=== PATIENT | male | born 1940 | race Caucasian/White ===

== ENCOUNTER 2016-12-15 04:30 | Inpatient (IN) | payer MEDICARE, OTHER ==
[2016-12-15] VITALS (11 sets, daily range): BP systolic 168–211; BP diastolic 72–125; PULSE 48–81; RESP 14–20; TEMP 97.2; O2SAT 96–99
[~2016-12-15] VITALS: Ht 177.8 cm; Wt 91.8 kg
[~2016-12-15 04:30] MED LIST: AMLO5TAB96 PO; CLOP75 PO; COZA50TA PO; CYCL20CR PO; LEVO.075 PO; Losartan Potassium PO; OMEP20TA39 PO; WAL-10TA2 PO
[2016-12-15] MEDS ORDERED: SODIUM CHLOR 0.9% 1000 ML INJ 1,000 ML IV SCH (04:33)
[2016-12-15] MEDS ORDERED: SODIUM CHLORIDE 0.9% FLUSH 10 ML FLUSH IV FLUSH PRN ×2 (04:45→10:30)
[2016-12-15] MEDS ORDERED: ALUMINUM/MAGNESIUM/SIMETH 30 ML CUP PO ONE (04:45)
[2016-12-15] MEDS ORDERED: ONDANSETRON HCL 4 MG/2 ML VIAL IVP ONE (04:45)
[2016-12-15] MEDS ORDERED: HYDROmorphone HCL PF 1 MG/ML VIAL IV PUSH ONE (04:45)
[2016-12-15] MEDS ORDERED: LIDOCAINE VISCOUS 2% SOLN 15 ML UDC PO ONE (04:45)
[2016-12-15 05:00] LABS: AUTOMATED NEUTROPHIL # 8.6 TH/MM3 (1.8-7.7); BASOPHIL % 0.2 % (0.0-2.0); EOSINOPHIL # 0.2 TH/MM3 (0-0.4); EOSINOPHIL % 1.3 % (0.0-4.0); HEMATOCRIT 43.8 % (39.0-51.0); HEMO FLAGS DIFF FINAL; LYMPH % 17.6 % (9.0-44.0); MEAN CELL VOLUME 85.8 FL (80.0-100.0); MEAN CORPUSCULAR HEMOGLOBIN 28.7 PG (27.0-34.0); MEAN CORPUSCULAR HGB CONC 33.5 % (32.0-36.0); MONO % 7.3 % (0.0-8.0); NEUT % 73.6 % (16.0-70.0); PLATELET COUNT 166 TH/MM3 (150-450); RED CELL DISTRIBUTION WIDTH 13.3 % (11.6-17.2); WHITE BLOOD COUNT 11.6 TH/MM3 (4.0-11.0)
[2016-12-15 05:12] LABS: APTT (PATIENT) 25.5 SEC (24.3-30.1); PROTHROMBIN TIME - PATIENT 11.6 SEC (9.8-11.6)
[2016-12-15 05:16] LABS: ALT (GPT) 18 U/L (12-78); ANION GAP 8 MEQ/L (5-15); AST (GOT) 13 U/L (15-37); BLOOD UREA NITROGEN 19 MG/DL (7-18); CHLORIDE 107 MEQ/L (98-107); GLOMERULAR FILTRATION RATE 60 ML/MIN (>89); POTASSIUM 3.9 MEQ/L (3.5-5.1); SODIUM (NA) 142 MEQ/L (136-145)
[2016-12-15] MEDS ORDERED: MONT10TA4 PO (05:18)
[2016-12-15] MEDS ORDERED: FENO1TAB46 PO (05:18)
[2016-12-15] MEDS ORDERED: CLOP75TA PO (05:18)
[2016-12-15] MEDS ORDERED: VITA100T15 PO (05:18)
[2016-12-15] MEDS ORDERED: LACTCAP8 PO (05:18)
[2016-12-15] MEDS ORDERED: LORA10TA PO (05:18)
[2016-12-15] MEDS ORDERED: LOSA50TA PO (05:18)
[2016-12-15] MEDS ORDERED: AMLO5TAB2 PO (05:18)
[2016-12-15] MEDS ORDERED: FOLI5CAP PO (05:18)
[2016-12-15] MEDS ORDERED: METH2.5T PO (05:18)
[2016-12-15] MEDS ORDERED: OMEP20TA PO (05:18)
[2016-12-15] MEDS ORDERED: SYNT175T PO (05:18)
[2016-12-15] MEDS ORDERED: PYRI100T PO (05:18)
[2016-12-15] MEDS ORDERED: CHOL100025 CHEW (05:18)
[2016-12-15 05:19] LABS: ALKALINE PHOSPHATASE 98 U/L (45-117); TOTAL BILIRUBIN ADULT 0.4 MG/DL (0.2-1.0)
[2016-12-15] MEDS ORDERED: PLAV75TA29 PO (05:19)
--- NOTE | 2016-12-15 05:26 | PD ---
HPI Chief Complaint: Cardiac Complaint Time Seen by Provider: 04:33 Travel History International Travel<30 days: No Contact w/Intl Traveler<30days: No Traveled to known affect area: No History of Present Illness HPI 76 M sudden onset abdominal pain while asleep. Constant. 10/10. Severe. Worse with palpation. No radiation. EMS reports pt cool pale and diaphoretic on scene. HR in 30's. Pt received atropine by EMS and HR in creased to 50s. He received 300NS. Similar episodes occurred previously and were diagnosed as pancreatitis. Pt has hx including CVA with mild residual speech deficit. PFSH Past Medical History Arthritis: Yes Autoimmune Disease: No Anxiety: No Depression: No Heart Rhythm Problems: Yes (A FIB) Cancer: No Cardiovascular Problems: Yes High Cholesterol: Yes Chemotherapy: No Chest Pain: No Cerebrovascular Accident: Yes (2001) Diabetes: Yes ([facility]) Patient Takes Glucophage: No Diminished Hearing: Yes ([facility]) Endocrine: No Gastrointestinal Disorders: Yes (PANCREATITIS, GALL BLADDER PROBLEMS) GERD: Yes Genitourinary: No Hypertension: Yes Immune Disorder: No Musculoskeletal: Yes Neurologic: No Psychiatric: No Reproductive: No Respiratory: No Immunizations Current: Yes Radiation Therapy: No Thyroid Disease: Yes ?: Not Past Surgical History Cholecystectomy: Yes (2013) Eye Surgery: Yes Pacemaker: No Other Surgery: Yes Social History Alcohol Use: No Tobacco Use: No Substance Use: No Allergies-Medications (Allergen,Severity, Reaction): Coded Allergies: No Known Allergies (Verified , U, 12/23/14) Reported Meds & Prescriptions Reported Meds & Active Scripts Active [Losartan Potassium] 50 MG Tab 50 Mg PO DAILY Synthroid (Levothyroxine Sodium) 75 Mcg Tab 75 Mcg PO DAILY@0600 Cozaar (Losartan Potassium) 50 Mg Tab 50 Mg PO BID decrease to once daily Reported Plavix (Clopidogrel Bisulfate) 75 Mg Tab 75 Mg PO DAILY Probiotic (Lactobacillus Acidophilus) 1 Cap Cap 3 Cap PO DAILY Vitamin B-6 (Pyridoxine HCl) 100 Mg Tab 100 Mg PO DAILY Vitamin B12 (Cyanocobalamin) 100 Mcg Tab 2,500 Mcg PO DAILY Vitamin D3 (Cholecalciferol) 1,000 Unit Chew 1,000 Units CHEW DAILY Folic Acid 5 Mg Cap 1 Mg PO DAILY Methotrexate 2.5 Mg Tab 2.5 Mg PO Q7D Omeprazole 20 Mg Tab 20 Mg PO DAILY Fenofibrate 40 Mg Tab 34 Mg PO DAILY Clopidogrel (Clopidogrel Bisulfate) 75 Mg Tab 75 Mg PO DAILY Synthroid (Levothyroxine Sodium) 175 Mcg Tab 175 Mcg PO DAILY Montelukast (Montelukast Sodium) 10 Mg Tab 10 Mg PO DAILY Loratadine 10 Mg Tab 10 Mg PO DAILY Losartan (Losartan Potassium) 50 Mg Tab 50 Mg PO BID Amlodipine (Amlodipine Besylate) 5 Mg Tab 5 Mg PO BID Cyclobenzaprine 20 (Cyclobenzaprine HCl) 20 Mg Cre 20 Mg PO DAILY Hm Omeprazole (Omeprazole) 20 Mg Tab 20 Mg PO DAILY Plavix (Clopidogrel Bisulfate) 75 Mg Tab 75 Mg PO EVERY OTHER DAY Norvasc (Amlodipine Besylate) 5 Mg Tab 5 Mg PO DAILY Loratadine 10 Mg Tab 10 Mg PO DAILY Review of Systems Except as stated in HPI: all other systems reviewed are Neg General / Constitutional: No: Fever Cardiovascular: Positive: Diaphoresis Physical Exam Narrative GENERAL: 76 M, WNWD, mild to moderate distress SKIN: Cool. Dry. HEAD: Atraumatic. Normocephalic. EYES: Pupils equal and round. No scleral icterus. No injection or drainage. ENT: No nasal bleeding or discharge. Mucous membranes pink and moist. NECK: Trachea midline. No JVD. CARDIOVASCULAR: Regular rate and rhythm. RESPIRATORY: No accessory muscle use. Clear to auscultation. Breath sounds equal bilaterally. GASTROINTESTINAL: TTP epigastrium. Guarding. No palpable/pulsatile mass. MUSCULOSKELETAL: Extremities without clubbing, cyanosis, or edema. No obvious deformities. NEUROLOGICAL: Awake and alert. No obvious cranial nerve deficits. Motor grossly within normal limits. Five out of 5 muscle strength in the arms and legs. Normal speech. PSYCHIATRIC: Appropriate mood and affect; insight and judgment normal. Data Data Last Documented VS Vital Signs Date Time Temp Pulse Resp B/P Pulse Ox O2 Delivery O2 Flow Rate FiO2 12/15/16 07:55 50 14 98 Nasal Cannula 2 12/15/16 04:34 97.2 Orders Complete Blood Count With Diff (12/15/16 04:33) Comprehensive Metabolic Panel (12/15/16 04:33) Lipase (12/15/16 04:33) Lactic Acid (12/15/16 04:33) Prothrombin Time / Inr (Pt) (12/15/16 04:33) Act Partial Throm Time (Ptt) (12/15/16 04:33) Urinalysis - C+S If Indicated (12/15/16 04:33) Ct Abd/Pel W Iv Contrast(Rout) (12/15/16 04:33) Iv Access Insert/Monitor (12/15/16 04:33) Ecg Monitoring (12/15/16 04:33) Oximetry (12/15/16 04:33) Ondansetron Inj (Zofran Inj) (12/15/16 04:45) Sodium Chlor 0.9% 1000 Ml Inj (Ns 1000 M (12/15/16 04:33) Sodium Chloride 0.9% Flush (Ns Flush) (12/15/16 04:45) Electrocardiogram (12/15/16 04:33) Al-Mag Hy-Si 40-40-4 Mg/Ml Liq (Mag-Al P (12/15/16 04:45) Lidocaine 2% Viscous (Xylocaine 2% Visco (12/15/16 04:45) Hydromorphone Pf Inj (Dilaudid Pf Inj) (12/15/16 04:45) Iohexol 350 Inj (Omnipaque 350 Inj) (12/15/16 07:28) Labs Laboratory Tests Test 12/15/16 04:45 White Blood Count 11.6 TH/MM3 Red Blood Count 5.10 MIL/MM3 Hemoglobin 14.7 GM/DL Hematocrit 43.8 % Mean Corpuscular Volume 85.8 FL Mean Corpuscular Hemoglobin 28.7 PG Mean Corpuscular Hemoglobin 33.5 % Concent Red Cell Distribution Width 13.3 % Platelet Count 166 TH/MM3 Mean Platelet Volume 8.2 FL Neutrophils (%) (Auto) 73.6 % Lymphocytes (%) (Auto) 17.6 % Monocytes (%) (Auto) 7.3 % Eosinophils (%) (Auto) 1.3 % Basophils (%) (Auto) 0.2 % Neutrophils # (Auto) 8.6 TH/MM3 Lymphocytes # (Auto) 2.0 TH/MM3 Monocytes # (Auto) 0.8 TH/MM3 Eosinophils # (Auto) 0.2 TH/MM3 Basophils # (Auto) 0.0 TH/MM3 CBC Comment DIFF FINAL Differential Comment Prothrombin Time 11.6 SEC Prothromb Time International 1.0 RATIO Ratio Activated Partial 25.5 SEC Thromboplast Time Sodium Level 142 MEQ/L Potassium Level 3.9 MEQ/L Chloride Level 107 MEQ/L Carbon Dioxide Level 27.0 MEQ/L Anion Gap 8 MEQ/L Blood Urea Nitrogen 19 MG/DL Creatinine 1.18 MG/DL Estimat Glomerular Filtration 60 ML/MIN Rate Random Glucose 122 MG/DL Lactic Acid Level 1.2 mmol/L Calcium Level 9.0 MG/DL Total Bilirubin 0.4 MG/DL Aspartate Amino Transf 13 U/L (AST/SGOT) Alanine Aminotransferase 18 U/L (ALT/SGPT) Alkaline Phosphatase 98 U/L Total Protein 6.9 GM/DL Albumin 3.5 GM/DL Lipase 11226 U/L MDM Medical Decision Making Medical Screen Exam Complete: Yes Emergency Medical Condition: Yes Medical Record Reviewed: Yes Differential Diagnosis Constipation, Gastritis, Acute Cholecystitis, Biliary Colic, Pancreatitis, MARTINEZ , Hepatitis, Bowel Obstruction, Cystitis, Mesenteric Ischemia, AAA, Appendicitis , Renal Stone/Hydronephrosis, GERD, perforated viscous Narrative Course CBC & BMP Diagram 12/15/16 04:45 LIpase 65555 LFTs normal Lactic acid 1.2 INR 1.0 Imaging pending at time of dictation. Dr Oliver to follow and admit patient. Nato Palma MD Dec 15, 2016 05:26
[2016-12-15] MEDS ORDERED: IOHEXOL 350 MG/ML 10 ML VIAL (for RAD DIAG) IV ONE (07:28)
--- NOTE | 2016-12-15 07:39 | RADRPT ---
EXAM DATE/TIME: 12/15/2016 07:17 [place] COMPARISON: CT ABDOMEN & PELVIS W CONTRAST, December 24, 2014, 1:58. INDICATIONS : Sudden onset epigastric pain. IV CONTRAST: 96 cc Omnipaque 350 (iohexol) IV ORAL CONTRAST: No oral contrast ingested. RADIATION DOSE: 16.41 CTDIvol (mGy) MEDICAL HISTORY : Pancreatitis. Cardiovascular disease Hypertension. SURGICAL HISTORY : Cholecystectomy. ENCOUNTER: Initial ACUITY: 1 day PAIN SCALE: 5/10 LOCATION: Bilateral upper quadrant TECHNIQUE: Volumetric scanning of the abdomen and pelvis was performed. Using automated exposure control and ad justment of the mA and/or kV according to patient size, radiation dose was kept as low as reasonably achievable to obtain optimal diagnostic quality images. FINDINGS: LOWER LUNGS: Prominent fibrotic changes in the lung bases similar to prior LIVER: Diffuse mild decrease in hepatic attenuation, potentially fatty infiltration without evidence of foca l mass or biliary ductal dilatation. Gallbladder is surgically absent. SPLEEN: Normal size without lesion. PANCREAS: Moderate surrounding peripancreatic inflammatory changes. No evidence of mass or loculated collection . KIDNEYS: Small bilateral renal cysts. No stone or hydronephrosis. ADRENAL GLANDS: Within normal limits. VASCULAR: Atherosclerotic changes in the abdominal aorta and visualized branch vessels. No evidence of aneurysm . No major vessel occlusion. BOWEL/MESENTERY: The stomach, small bowel, and colon demonstrate no acute abnormality. There is no free intraperitone al air or fluid. ABDOMINAL WALL: Within normal limits. RETROPERITONEUM: There is no lymphadenopathy. BLADDER: No wall thickening or mass. REPRODUCTIVE: Within normal limits. INGUINAL: There is no lymphadenopathy or hernia. MUSCULOSKELETAL: Within normal limits for patient age. CONCLUSION: Pancreatitis. No evidence of abscess, pseudocyst or other complication at present Derick Purcell MD on December 15, 2016 at 7:33 Board Certified Radiologist. This report was verified electronically.
[2016-12-15] MEDS ORDERED: HYDROmorphone HCL PF 1 MG/ML VIAL IVS ONE (08:00)
--- NOTE | 2016-12-15 08:19 | PD ---
Data Data Last Documented VS Vital Signs Date Time Temp Pulse Resp B/P Pulse Ox O2 Delivery O2 Flow Rate FiO2 12/15/16 07:55 50 14 197/84 98 Nasal Cannula 2 12/15/16 04:34 97.2 Orders Complete Blood Count With Diff (12/15/16 04:33) Comprehensive Metabolic Panel (12/15/16 04:33) Lipase (12/15/16 04:33) Lactic Acid (12/15/16 04:33) Prothrombin Time / Inr (Pt) (12/15/16 04:33) Act Partial Throm Time (Ptt) (12/15/16 04:33) Urinalysis - C+S If Indicated (12/15/16 04:33) Ct Abd/Pel W Iv Contrast(Rout) (12/15/16 04:33) Iv Access Insert/Monitor (12/15/16 04:33) Ecg Monitoring (12/15/16 04:33) Oximetry (12/15/16 04:33) Ondansetron Inj (Zofran Inj) (12/15/16 04:45) Sodium Chlor 0.9% 1000 Ml Inj (Ns 1000 M (12/15/16 04:33) Sodium Chloride 0.9% Flush (Ns Flush) (12/15/16 04:45) Electrocardiogram (12/15/16 04:33) Al-Mag Hy-Si 40-40-4 Mg/Ml Liq (Mag-Al P (12/15/16 04:45) Lidocaine 2% Viscous (Xylocaine 2% Visco (12/15/16 04:45) Hydromorphone Pf Inj (Dilaudid Pf Inj) (12/15/16 04:45) Iohexol 350 Inj (Omnipaque 350 Inj) (12/15/16 07:28) Hydromorphone Pf Inj (Dilaudid Pf Inj) (12/15/16 08:00) Admit Order (Ed Use Only) (12/15/16 ) Labs Laboratory Tests Test 12/15/16 12/15/16 04:45 08:05 White Blood Count 11.6 TH/MM3 Red Blood Count 5.10 MIL/MM3 Hemoglobin 14.7 GM/DL Hematocrit 43.8 % Mean Corpuscular Volume 85.8 FL Mean Corpuscular Hemoglobin 28.7 PG Mean Corpuscular Hemoglobin 33.5 % Concent Red Cell Distribution Width 13.3 % Platelet Count 166 TH/MM3 Mean Platelet Volume 8.2 FL Neutrophils (%) (Auto) 73.6 % Lymphocytes (%) (Auto) 17.6 % Monocytes (%) (Auto) 7.3 % Eosinophils (%) (Auto) 1.3 % Basophils (%) (Auto) 0.2 % Neutrophils # (Auto) 8.6 TH/MM3 Lymphocytes # (Auto) 2.0 TH/MM3 Monocytes # (Auto) 0.8 TH/MM3 Eosinophils # (Auto) 0.2 TH/MM3 Basophils # (Auto) 0.0 TH/MM3 CBC Comment DIFF FINAL Differential Comment Prothrombin Time 11.6 SEC Prothromb Time International 1.0 RATIO Ratio Activated Partial 25.5 SEC Thromboplast Time Sodium Level 142 MEQ/L Potassium Level 3.9 MEQ/L Chloride Level 107 MEQ/L Carbon Dioxide Level 27.0 MEQ/L Anion Gap 8 MEQ/L Blood Urea Nitrogen 19 MG/DL Creatinine 1.18 MG/DL Estimat Glomerular Filtration 60 ML/MIN Rate Random Glucose 122 MG/DL Lactic Acid Level 1.2 mmol/L Calcium Level 9.0 MG/DL Total Bilirubin 0.4 MG/DL Aspartate Amino Transf 13 U/L (AST/SGOT) Alanine Aminotransferase 18 U/L (ALT/SGPT) Alkaline Phosphatase 98 U/L Total Protein 6.9 GM/DL Albumin 3.5 GM/DL Lipase 26948 U/L Urine Color LIGHT-YELLOW Urine Turbidity CLEAR Urine pH 6.0 Urine Specific [place] 1.026 Urine Protein NEG mg/dL Urine Glucose (UA) NEG mg/dL Urine Ketones NEG mg/dL Urine Occult Blood NEG Urine Nitrite NEG Urine Bilirubin NEG Urine Urobilinogen LESS THAN 2.0 MG/DL Urine Leukocyte Esterase NEG Urine RBC LESS THAN 1 /hpf Urine WBC LESS THAN 1 /hpf Urine Mucus FEW /lpf Microscopic Urinalysis Comment CULT NOT INDICATED MDM Supervised Visit with KIERAN: No Narrative Course 76-year-old man with history of choledocholithiasis and gallstone pancreatitis, status post cholecystectomy, presents to the emergency Department the abrupt onset of abdominal pain, vomiting, found to be pale cold diaphoretic with a heart rate in the 30s likely from vasovagal episode, and then found to have a lipase of 40,000. Was initially evaluated by Dr. Palma and signed out to me to follow-up on the results of CT imaging and for admission. Medical history significant for gallstone pancreatitis, choledocholithiasis, hyperlipidemia, CVA, hypertension, hypothyroidism. Review of records shows the patient had choledocholithiasis following his cholecystectomy requiring ERCP. He states he follows with the [facility]. Patient will be admitted for acute pancreatitis. Spoke with Dr. Muhammad with [facility]. We'll order MRCP, place consult for GI. Diagnosis Primary Impression: Acute pancreatitis Agustin Oliver MD Dec 15, 2016 08:19
[2016-12-15 08:35] LABS: BLOOD, URINE NEG (NEG); COMMENT (UR) CULT NOT INDICATED; CULTURE IF INDICATED CULT NOT INDICATED; GLUCOSE,URINE NEG (NEG); KETONE, URINE NEG (NEG); MUCUS URINE FEW /lpf (OCC); NITRITE,URINE NEG (NEG); URINE COLOR LIGHT-YELLOW (YELLW/STRAW)
--- NOTE | 2016-12-15 09:24 | HHI.HP ---
[facility] Service Family Medicine Primary Care Physician Non-Staff Admission Diagnosis acute pancreatitis Diagnoses: International Travel<30 Days: No Contact w/Intl Traveler<30days: No Known Affected Area: No History of Present Illness Patient is a 76-year-old male with PMH significant for CVA, HTN, recurrent pancreatitis. Presented here today due to epigastric abdominal pain that started 0200 today. Abdominal pain was described as gas that woke him up in the middle of the night. Went to the restroom where he had a bowel movement and passed gas which did alleviate some of his pain. No melena or hematochezia. Denied any nausea or vomiting. Went back to sleep but continued to have abdominal pain as well as being diaphoretic and cool. Endorses decreased appetite over several days prior to abdominal pain today. No fatty meals recently. Since being in hospital, he does endorse improvement in his pain. Continues to lack an appetite and has had no food today. Denies fevers, sore throat, chest pain, SOB, dysuria, rashes. Reports prior hospitalizations for pancreatitis were not complicated. Did not require intubation or intensive care. Has been seeing GI doctors but there is no clear etiology for recurrent pancreatitis. Denies alcohol use. Of note patient was placed back on fenofibrate 6 months ago and has been taking methotrexate since July. Last reported episode of pancreatitis was about 2 years ago. (Shobha Rodríguez MD R2) Review of Systems Constitutional: COMPLAINS OF: Diaphoretic episodes, Change in appetite, DENIES : Fever Eyes: DENIES: Eye pain Ears, nose, mouth, throat: DENIES: Throat pain Respiratory: COMPLAINS OF: Cough, DENIES: Shortness of breath Cardiovascular: DENIES: Chest pain, Lower Extremity Edema Gastrointestinal: COMPLAINS OF: Abdominal pain, DENIES: Constipation, Diarrhea , Nausea, Vomiting Genitourinary: DENIES: Hematuria, Dysuria Integumentary: DENIES: Rash Neurologic: COMPLAINS OF: Localized weakness (residual left facial weakness and dysarthria from prior stroke), DENIES: Abnormal gait, Headache Psychiatric: DENIES: Confusion (Shobha Rodríguez MD R2) Past Family Social History Past Medical History Hyperlipidemia Stroke [id number] speech and dysarthria on left side of mouth Hypertension Hypothyroidism Pancreatitis x2-3episodes possible afib? Past Surgical History Cholecystectomy Cataract surgery Reported Medications Reported Meds & Active Scripts Active [Losartan Potassium] 50 MG Tab 50 Mg PO DAILY Synthroid (Levothyroxine Sodium) 75 Mcg Tab 75 Mcg PO DAILY@0600 Cozaar (Losartan Potassium) 50 Mg Tab 50 Mg PO BID decrease to once daily Reported Plavix (Clopidogrel Bisulfate) 75 Mg Tab 75 Mg PO DAILY Probiotic (Lactobacillus Acidophilus) 1 Cap Cap 3 Cap PO DAILY Vitamin B-6 (Pyridoxine HCl) 100 Mg Tab 100 Mg PO DAILY Vitamin B12 (Cyanocobalamin) 100 Mcg Tab 2,500 Mcg PO DAILY Vitamin D3 (Cholecalciferol) 1,000 Unit Chew 1,000 Units CHEW DAILY Folic Acid 5 Mg Cap 1 Mg PO DAILY Methotrexate 2.5 Mg Tab 2.5 Mg PO Q7D Omeprazole 20 Mg Tab 20 Mg PO DAILY Fenofibrate 40 Mg Tab 34 Mg PO DAILY Clopidogrel (Clopidogrel Bisulfate) 75 Mg Tab 75 Mg PO DAILY Synthroid (Levothyroxine Sodium) 175 Mcg Tab 175 Mcg PO DAILY Montelukast (Montelukast Sodium) 10 Mg Tab 10 Mg PO DAILY Loratadine 10 Mg Tab 10 Mg PO DAILY Losartan (Losartan Potassium) 50 Mg Tab 50 Mg PO BID Amlodipine (Amlodipine Besylate) 5 Mg Tab 5 Mg PO BID Cyclobenzaprine 20 (Cyclobenzaprine HCl) 20 Mg Cre 20 Mg PO DAILY Hm Omeprazole (Omeprazole) 20 Mg Tab 20 Mg PO DAILY Plavix (Clopidogrel Bisulfate) 75 Mg Tab 75 Mg PO EVERY OTHER DAY Norvasc (Amlodipine Besylate) 5 Mg Tab 5 Mg PO DAILY Loratadine 10 Mg Tab 10 Mg PO DAILY (Shobha Rodríguez MD R2) Allergies: Coded Allergies: No Known Allergies (Verified , U, 12/23/14) Family History No family history of pancreatitis Social History Lives with 2 sons and Tobacco: Quit in 1991, previously smoked for 30 years Alcohol: Denies Illicit: Denies (Shobha Rodríguez MD R2) Physical Exam Vital Signs Vital Signs Date Time Temp Pulse Resp B/P Pulse Ox O2 Delivery O2 Flow Rate FiO2 12/15/16 07:55 50 14 197/84 98 Nasal Cannula 2 12/15/16 06:34 16 12/15/16 04:38 96 Room Air 12/15/16 04:38 49 12/15/16 04:34 97.2 52 18 168/72 99 Physical Exam GENERAL: This is a well-nourished, well-developed patient, in no apparent distress. Resting comfortably in bed. SKIN: No rashes, ecchymoses or lesions. Cool and dry. EYES: Pupils equal round and reactive. Extraocular motions intact. No scleral icterus. No injection or drainage. ENT: Nose without bleeding, purulent drainage. Throat without erythema, tonsillar hypertrophy or exudate. Uvula midline. Airway patent. NECK: No lymphadenopathy. Supple, nontender, no meningeal signs. CARDIOVASCULAR: Regular rate and rhythm without murmurs, gallops, or rubs. RESPIRATORY: Good air movement bilaterally. Fine crackles bilaterally but without wheezes. GASTROINTESTINAL: Abdomen soft, mild tenderness in epigastric area. Nondistended. Mild involuntary guarding. MUSCULOSKELETAL: Extremities without clubbing, cyanosis, or edema. No calf tenderness. NEUROLOGICAL: Awake and alert. Mild left-sided facial weakness. Slowed speech but clear articulation. Otherwise neurologically intact. Laboratory Laboratory Tests Test 12/15/16 12/15/16 04:45 08:05 White Blood Count 11.6 Red Blood Count 5.10 Hemoglobin 14.7 Hematocrit 43.8 Mean Corpuscular Volume 85.8 Mean Corpuscular Hemoglobin 28.7 Mean Corpuscular Hemoglobin 33.5 Concent Red Cell Distribution Width 13.3 Platelet Count 166 Mean Platelet Volume 8.2 Neutrophils (%) (Auto) 73.6 Lymphocytes (%) (Auto) 17.6 Monocytes (%) (Auto) 7.3 Eosinophils (%) (Auto) 1.3 Basophils (%) (Auto) 0.2 Neutrophils # (Auto) 8.6 Lymphocytes # (Auto) 2.0 Monocytes # (Auto) 0.8 Eosinophils # (Auto) 0.2 Basophils # (Auto) 0.0 CBC Comment DIFF FINAL Differential Comment Prothrombin Time 11.6 Prothromb Time International 1.0 Ratio Activated Partial 25.5 Thromboplast Time Sodium Level 142 Potassium Level 3.9 Chloride Level 107 Carbon Dioxide Level 27.0 Anion Gap 8 Blood Urea Nitrogen 19 Creatinine 1.18 Estimat Glomerular Filtration 60 Rate Random Glucose 122 Lactic Acid Level 1.2 Calcium Level 9.0 Total Bilirubin 0.4 Aspartate Amino Transf 13 (AST/SGOT) Alanine Aminotransferase 18 (ALT/SGPT) Alkaline Phosphatase 98 Total Protein 6.9 Albumin 3.5 Lipase 31812 Urine Color LIGHT-YELLOW Urine Turbidity CLEAR Urine pH 6.0 Urine Specific [place] 1.026 Urine Protein NEG Urine Glucose (UA) NEG Urine Ketones NEG Urine Occult Blood NEG Urine Nitrite NEG Urine Bilirubin NEG Urine Urobilinogen LESS THAN 2.0 Urine Leukocyte Esterase NEG Urine RBC LESS THAN 1 Urine WBC LESS THAN 1 Urine Mucus FEW Microscopic Urinalysis Comment CULT NOT INDICATED (Shobha Rodríguez MD R2) Result Diagram: 12/15/1644412/15/16444 Imaging Last Impressions Abdomen/Pelvis CT 12/15/16432 Signed Impressions: Service Date/Time: , December 15, 2016 07:17 - CONCLUSION: Pancreatitis. No evidence of abscess, pseudocyst or other complication at present Derick Purcell MD (Shobha Rodríguez MD R2) Assessment and Plan Assessment and Plan 76-year-old male with PMH significant for CVA, HTN, recurrent pancreatitis. Admitted for pancreatitis Code Status Full Discussed Condition With Dr. Lion and Dr. Burton (Shobha oRdríguez MD R2) Attending Attestation Patient seen and examined. Case reviewed and discussed with the resident team. Agree with plan of care as discussed with me and documented in the resident note. (Viri Lion MD) Problem List: (1) Acute pancreatitis Status: Acute Plan: History of recurrent pancreatitis despite a cholecystectomy. Presented due to acute onset of abdominal pain that woke him up from sleep on day of admission. Lipase elevated at around 40,000. [place] II score of 14 -Mild leukocytosis -CMP, ABG unremarkable -EKG and troponin x1 unremarkable except for sinus bradycardia -Fluid hydration, see rate below -incentive spirometry GI consulted: appreciate recommendations Imaging: * MRCP: pending * Abd CT: Pancreatitis without evidence of abscess, pseudocyst or other complication * CXR: Chronic interstitial fibrosis but otherwise unremarkable for acute disease. (2) Hypertension Status: Acute Plan: Reports that he has been trying to wean himself off of his home blood pressure medications. -Will resume recommended home dosing as patient's blood pressure has been elevated -continue home amlodipine, Losartan -Vasotec PRN -Will add hydralazine if BP remains elevated (3) Atrial fibrillation Status: Acute Plan: Reported history of Afib which is not present on EKG -will monitor (4) Nutrition, metabolism, and development symptoms Status: Acute Plan: Diet: NPO for pancreatitis, may advance based on patient's symptoms. Fluids: NS at 175 plus bolus 2 in ED Electrolytes: Unremarkable DVT prophylaxis: Lovenox GI prophylaxis: Continue home PPI Chronic conditions: * Allergies: Continue home Claritin, Singulair * Hypothyroidism: Levothyroxine 175mg * CVA: aspirin and plavix (Shobha Rodríguez MD R2) Physician Certification 2 Midnight Certification Type: Admission for Inpatient Services Order for Inpatient Services The services are ordered in accordance with Medicare regulations or non- Medicare payer requirements, as applicable. In the case of services not specified as inpatient-only, they are appropriately provided as inpatient services in accordance with the 2-midnight benchmark. Estimated LOS (days): 3 days is the estimated time the patient will need to remain in the hospital, assuming treatment plan goals are met and no additional complications. Post-Hospital Plan: Home (Shobha Rodríguez MD R2) Shobha Rodríguez MD R2 Dec 15, 2016 09:24 Viri Lion MD Dec 15, 2016 16:23
[2016-12-15] MEDS ORDERED: NALOXONE HCL 0.4 MG/ML AMP IV PRN (10:30)
[2016-12-15] MEDS ORDERED: ACETAMINOPHEN 325 MG TAB PO PRN (10:30)
[2016-12-15] MEDS ORDERED: ACETAMINOPHEN/HYDROcodone 325 MG/5 MG TAB PO PRN (10:30)
[2016-12-15] MEDS ORDERED: MORPHINE SULFATE 4 MG/ML INJ IV PRN (10:30)
[2016-12-15] MEDS ORDERED: ENALAPRILAT 1.25 MG/ML VIAL IV PRN (10:30)
[2016-12-15] MEDS ORDERED: ACETAMINOPHEN/HYDROcodone 325 MG/10 MG TAB PO PRN (10:30)
[2016-12-15] MEDS ORDERED: RESP: ALBUTEROL 2.5 MG/3 ML NEB (PRN) INH (10:45)
[2016-12-15] MEDS ORDERED: SODIUM CHLOR 0.9% 1000 ML INJ 1,000 ML IV ONE (10:45)
[2016-12-15 11:33] LABS: BLOOD GAS BASE EXCESS -0.2 mmol/L (-2-2); BLOOD GAS CARBOXYHEMOGLOBIN 1.1 % (0-4); BLOOD GAS HCO3 24 mmol/L (22-26); BLOOD GAS METHEMOGLOBIN 0.4 % (0-2); BLOOD GAS O2 HGB SATURATION 91 % (90-100); BLOOD GAS OXYGEN CONTENT 19.4 Vol % (12.0-20.0); BLOOD GAS PCO2 41 mmHg (38-42); BLOOD GAS PO2 62 mmHG (61-120); BLOOD GAS TOTAL HGB 15.1 G/DL (12.0-16.0); CRITICAL VALUE NO; DRAW SITE LT RADIAL; FIO2 21 %; NUMBER OF ARTERIAL PUNCTURES 1; STAT YES; TEMP CORR TO 98.6; ULNAR PULSE PRESENT
[2016-12-15] MEDS: SODIUM CHLOR 0.9% 1000 ML INJ 1,000 ML IV SCH ×3 (11:53→21:12)
[2016-12-15] MEDS: DOCUSATE SODIUM 100 MG CAP PO SCH ×2 (11:53→21:12)
--- NOTE | 2016-12-15 12:01 | RADRPT ---
EXAM DATE/TIME: 12/15/2016 10:25 [facility] COMPARISON: CT ABDOMEN & PELVIS W CONTRAST, December 15, 2016, 7:17. MRCP W/O CONTRAST, December 24, 2014, 13:17. INDICATIONS : Pancreatitis. MEDICAL HISTORY : Hypertension. Hypothyroidism. Atrial fibrillation. SURGICAL HISTORY : Cholecystectomy. Tonsillectomy. Bilateral knees, thumb, cataracts. ENCOUNTER: Initial ACUITY: 1 day PAIN SCORE: 4/10 LOCATION: Abdomen. TECHNIQUE: Multiplanar, multisequence magnetic resonance imaging of the abdomen was performed. High-resolution 3D dataset was utilized to reconstruct maximum-intensity projection (MIP) images. FINDINGS: There is no evidence of biliary ductal dilatation or focal filing defect. The gallbladder has been r esected. The distal common bile duct measures 7 mm in caliber. The liver is unremarkable without fo mayra mass. The portal vasculature is unremarkable. Multiple bilateral renal cysts are noted. The ad renal glands are normal bilaterally. Spleen is top normal size. There is evidence of cabrera-pancreati c inflammatory changes consistent with acute pancreatitis. There is no filling defect within the marley n pancreatic duct. There is minimal fusiform dilatation of the proximal portion of the main pancreat ic duct. This portion of the duct measures 6 mm. CONCLUSION: 1. Minimal fusiform dilatation of the proximal portion of the main pancreatic duct measuring 6 mm. 2. Acute pancreatitis. 3. No biliary ductal dilatation or filling defect to suggest stone. 4. Multiple bilateral renal cysts. Ascencion Andujar MD on December 15, 2016 at 11:41 Board Certified Radiologist. This report was verified electronically.
--- NOTE | 2016-12-15 12:02 | RADRPT ---
EXAM DATE/TIME: 12/15/2016 11:14 [facility] COMPARISON: CT ABDOMEN & PELVIS W CONTRAST, December 15, 2016, 7:17. CHEST SINGLE AP, June 10, 2014, 4:25. INDICATIONS : COPD. Short of breath. MEDICAL HISTORY : Pancreatitis. Cardiovascular disease. Hypertension. SURGICAL HISTORY : Cholecystectomy. ENCOUNTER: Initial ACUITY: 1 day PAIN SCORE: 0/10 LOCATION: Bilateral chest FINDINGS: Chronic interstitial fibrosis is noted predominantly within the lung bases bilaterally. The heart is enlarged. There is no acute focal pulmonary infiltrate. Degenerative changes are noted throughout the thoracic spine. CONCLUSION: 1. Chronic interstitial fibrosis predominantly within the lung bases. 2. Cardiomegaly. 3. No acute focal pulmonary infiltrate or pulmonary vascular congestion. Ascencion Andujar MD on December 15, 2016 at 11:51 Board Certified Radiologist. This report was verified electronically.
--- NOTE | 2016-12-15 12:53 | HHI.FPPN ---
Subjective Remarks 76-year-old male who awoke this morning with severe abdominal pain in the upper abdomen. He presented to the emergency department, and gives history of recurrent pancreatitis. At the time he was admitted, he was noted to have bradycardia and he also had sweats. Patient is not diabetic, but has had a stroke in the past. His is with him, they lived in the home together, and she reports that he has had some difficulty with swallowing since his stroke. Please see history and physical examination for this admission for additional historical details including past, family, social history and review of systems. As was reviewed with the patient, and he complains of pain at a level of 4 out of 10 in the upper abdomen. He has no other complaints at this point. Objective Vitals Vital Signs Date Time Temp Pulse Resp B/P Pulse Ox O2 Delivery O2 Flow Rate FiO2 12/15/16 12:21 70 16 200/125 96 Nasal Cannula 2 12/15/16 11:30 48 16 191/84 98 Room Air 12/15/16 07:55 50 14 197/84 98 Nasal Cannula 2 12/15/16 06:34 16 12/15/16 04:38 96 Room Air 12/15/16 04:38 49 12/15/16 04:34 97.2 52 18 168/72 99 Result Diagram: 12/15/16 0445 12/15/16 0445 Other Results Laboratory Tests Test 12/15/16 12/15/16 12/15/16 12/15/16 04:45 08:05 11:10 11:22 White Blood Count 11.6 TH/MM3 Red Blood Count 5.10 MIL/MM3 Hemoglobin 14.7 GM/DL Hematocrit 43.8 % Mean Corpuscular Volume 85.8 FL Mean Corpuscular Hemoglobin 28.7 PG Mean Corpuscular Hemoglobin 33.5 % Concent Red Cell Distribution Width 13.3 % Platelet Count 166 TH/MM3 Mean Platelet Volume 8.2 FL Neutrophils (%) (Auto) 73.6 % Lymphocytes (%) (Auto) 17.6 % Monocytes (%) (Auto) 7.3 % Eosinophils (%) (Auto) 1.3 % Basophils (%) (Auto) 0.2 % Neutrophils # (Auto) 8.6 TH/MM3 Lymphocytes # (Auto) 2.0 TH/MM3 Monocytes # (Auto) 0.8 TH/MM3 Eosinophils # (Auto) 0.2 TH/MM3 Basophils # (Auto) 0.0 TH/MM3 CBC Comment DIFF FINAL Differential Comment Prothrombin Time 11.6 SEC Prothromb Time International 1.0 RATIO Ratio Activated Partial 25.5 SEC Thromboplast Time Sodium Level 142 MEQ/L Potassium Level 3.9 MEQ/L Chloride Level 107 MEQ/L Carbon Dioxide Level 27.0 MEQ/L Anion Gap 8 MEQ/L Blood Urea Nitrogen 19 MG/DL Creatinine 1.18 MG/DL Estimat Glomerular Filtration 60 ML/MIN Rate Random Glucose 122 MG/DL Lactic Acid Level 1.2 mmol/L Calcium Level 9.0 MG/DL Total Bilirubin 0.4 MG/DL Aspartate Amino Transf 13 U/L (AST/SGOT) Alanine Aminotransferase 18 U/L (ALT/SGPT) Alkaline Phosphatase 98 U/L Total Protein 6.9 GM/DL Albumin 3.5 GM/DL Lipase 86794 U/L Urine Color LIGHT-YELLOW Urine Turbidity CLEAR Urine pH 6.0 Urine Specific [place] 1.026 Urine Protein NEG mg/dL Urine Glucose (UA) NEG mg/dL Urine Ketones NEG mg/dL Urine Occult Blood NEG Urine Nitrite NEG Urine Bilirubin NEG Urine Urobilinogen LESS THAN 2.0 MG/DL Urine Leukocyte Esterase NEG Urine RBC LESS THAN 1 /hpf Urine WBC LESS THAN 1 /hpf Urine Mucus FEW /lpf Microscopic Urinalysis Comment CULT NOT INDICATED Troponin I LESS THAN 0.02 NG/ML Blood Gas Puncture Site LT RADIAL Blood Gas Patient Temperature 98.6 Blood Gas HCO3 24 mmol/L Blood Gas Base Excess -0.2 mmol/L Blood Gas Oxygen Saturation 91 % Arterial Blood pH 7.39 Arterial Blood Partial 41 mmHg Pressure CO2 Arterial Blood Partial 62 mmHG Pressure O2 Arterial Blood Oxygen Content 19.4 Vol % Arterial Blood 1.1 % Carboxyhemoglobin Arterial Blood Methemoglobin 0.4 % Blood Gas Hemoglobin 15.1 G/DL Blood Gas Inspired Oxygen 21 % Imaging Last Impressions Abdomen/Pelvis CT 12/15/16 0433 Signed Impressions: Service Date/Time: November 07:17 - CONCLUSION: Pancreatitis. No evidence of abscess, pseudocyst or other complication at present Derick Purcell MD Objective Remarks This is an alert, hydrated male, in no acute distress. His is with him. He is hard of hearing. Conjunctiva and sclerae clear Oral mucous membranes moist, he has dentures Neck supple without mass or lymphadenopathy or thyromegaly Heart is regular, somewhat bradycardic. Lungs clear to auscultation Abdomen reveals scant bowel sounds, tender in the upper abdomen to palpation. He does guard a little. Extremities moves all, good pulses in the dorsalis pedis bilaterally A/P Assessment and Plan 76-year-old male admitted with recurrent acute pancreatitis. GI has been consult could an MRCP is planned. Attending Attestation Patient seen and examined. Case reviewed and discussed with the resident team. Agree with plan of care as discussed with me and documented in the resident note. Viri Lion MD Dec 15, 2016 12:53
[2016-12-15] MEDS: RESP: ALBUTEROL 2.5 MG/IPRATROPIUM 0.5 MG NEB (SCH) INH (13:59)
--- NOTE | 2016-12-15 14:00 | EKG ---
Date Performed: 12/15/2016 Time Performed: 04:47:38 PTAGE: 76 years EKG: SINUS BRADYCARDIA WITH OCCASIONAL SUPRAVENTRICULAR PREMATURE COMPLEXES INFERIOR MYOCARDIAL INFARCTION ABNORMAL ECG Compared to the PREVIOUS TRACING sinus rate has slowed PREVIOUS TRACIN12/24/2014 00.32 DOCTOR: Jose Eduardo Granger Interpretating Date/Time 12/15/2016 13:58:52
--- NOTE | 2016-12-15 17:34 | MB ---
cc: LES PORTILLO M.D., KETUL DATE OF CONSULTATION: 12/15/2016 DATE OF : 1940 ENDOSCOPIST Aldo Muhammad MD. PRIMARY BRICKLAYER'S ASSISTANT Les Portillo MD REASON FOR CONSULTATION Pancreatitis. HISTORY OF PRESENT ILLNESS This is a 76-year-old very pleasant gentleman who was in his usual state of health, woke up about 2 o'clock this morning with sudden onset of epigastric midabdominal discomfort radiating to the back which woke him from his sleep. He denied any nausea or vomiting. He did have a bowel movement last night which helped his pain somewhat. He denies any new sick contacts or changes of his normal routine. Due to his symptoms worsening, he came in to the emergency room and he underwent a CT scan of the abdomen and pelvis which was significant for evidence of pancreatitis and mild dilation of the pancreatic duct otherwise no clear stones were found. He has had a previous attack of pancreatitis requiring an ERCP with stone extraction in the past. Due to this GI was consulted. PAST MEDICAL HISTORY 1. Dyslipidemia. 2. History of CVA. 3. Hypertension. 4. Hypothyroidism. 5. History of pancreatitis. PAST SURGICAL HISTORY 1. Cholecystectomy. 2. Cataract surgery. ALLERGIES NO KNOWN DRUG ALLERGIES. HOME MEDICATIONS Please see MAR for a complete list. FAMILY HISTORY No GI malignancies. SOCIAL HISTORY Lives with . Quit smoking in 1991, previous [id number] smoker. Denies alcohol. Denies any illicit drug use. REVIEW OF SYSTEMS A 12-point review system showed to be negative or noncontributory except for the above-mentioned in the HPI. PHYSICAL EXAMINATION VITAL SIGNS: 97.2, heart rate 70, respiratory rate 16, blood pressure 200/125, heart rate 96 on 2 liters. GENERAL: Alert, oriented, in mild acute distress. HEENT: Mucosa moist and pink. Extraocular movements are intact. Pupils equal, round and reactive to light. NECK: Supple, nontender. No carotid bruits. No JVD. No lymphadenopathy. RESPIRATORY: Clear to auscultation bilaterally, nonlabored. CARDIOVASCULAR: Normal rate and rhythm. No murmur heard. GASTROINTESTINAL: Soft, nondistended, tenderness to palpation in the midabdomen, no rebound appreciated. No periumbilical ecchymosis. GENITOURINARY: No CVA angle tenderness noted. No inguinal tenderness. LYMPHATICS: Normal. MUSCULOSKELETAL: Normal range of motion, equal in upper extremities. SKIN: Warm, dry, intact. NEUROLOGIC: Alert, oriented. No focal deficits. PSYCHIATRIC: Cooperative, appropriate mood and affect. LABORATORY DATA WBC 11.6, hemoglobin 14.7, platelet count 166. Sodium 142, potassium 3.9, chloride 107, bicarb 27, BUN 19, creatinine 1.18, lactic acid 1.2, AST 13, total bilirubin 0.4, ALT 18, alk phos 98, lipase 40,976. INR 1.0. IMAGING CT of the abdomen and pelvis: Pancreatitis with no evidence of abscess, pseudocyst or complications. MRCP: Minimal fusiform dilation of the proximal portion of the pancreatic duct measuring 6 mm. Acute pancreatitis. No biliary ductal dilatation or filling defects to suggest a stone. Common bile duct measures 7 mm. IMPRESSION 1. Acute pancreatitis of unclear etiology. No current clear evidence of common duct stone at this time. 2. Slight dilation of the main proximal pancreatic duct of unclear etiology. This may need further workup as outpatient, could raise the possibility of having an underlying main duct IPMN. 3. Abdominal pain. RECOMMENDATIONS 1. Continue aggressive IV hydration using lactated Ringer's formula. 2. Pain medication as needed. 3. Clear liquid diet and slowly advance as tolerated. 4. Once acute symptoms have all resolved in one-to-two months, can consider further workup and have an endoscopic ultrasound to rule out any occult pathology near the head of the pancreas given the mild dilation of the main pancreatic duct. MD CLEVE Rocha/MARGI /1:36 PM /4:30 PM
[2016-12-15] MEDS: MORPHINE SULFATE 4 MG/ML INJ IV PRN ×2 (17:38→23:55)
[2016-12-15] MEDS ORDERED: amLODIPine BESYLATE 5 MG TAB PO SCH (21:00)
[2016-12-15] MEDS: SODIUM CHLORIDE 0.9% FLUSH 10 ML FLUSH IV FLUSH SCH (21:00)
[2016-12-15] MEDS ORDERED: ENOXAPARIN SODIUM 40 MG/0.4 ML SYRINGE SQ SCH (21:00)
[2016-12-15] MEDS: LOSARTAN 50 MG TAB PO SCH (21:12)
[2016-12-16] VITALS: BP 159/72; PULSE 68; RESP 20; TEMP 97.8; O2SAT 95
[2016-12-16 00:19] VITALS: O2SAT 92
[2016-12-16 04:00] VITALS: BP 162/77; PULSE 66; RESP 18; TEMP 98.5; O2SAT 95
[2016-12-16 04:31] LABS: AUTOMATED NEUTROPHIL # 8.3 TH/MM3 (1.8-7.7); BASOPHIL % 0.2 % (0.0-2.0); EOSINOPHIL # 0.1 TH/MM3 (0-0.4); EOSINOPHIL % 1.1 % (0.0-4.0); HEMATOCRIT 41.8 % (39.0-51.0); HEMO FLAGS DIFF FINAL; LYMPH % 17.6 % (9.0-44.0); MEAN CORPUSCULAR HGB CONC 34.2 % (32.0-36.0); MONO % 9.6 % (0.0-8.0); NEUT % 71.5 % (16.0-70.0); PLATELET COUNT 154 TH/MM3 (150-450); RED BLOOD COUNT 4.93 MIL/MM3 (4.50-5.90); RED CELL DISTRIBUTION WIDTH 13.2 % (11.6-17.2); WHITE BLOOD COUNT 11.6 TH/MM3 (4.0-11.0)
[2016-12-16 05:01] LABS: ALKALINE PHOSPHATASE 81 U/L (45-117); ALT (GPT) 17 U/L (12-78); TOTAL BILIRUBIN ADULT 0.5 MG/DL (0.2-1.0)
[2016-12-16 05:25] LABS: ANION GAP 8 MEQ/L (5-15); AST (GOT) 19 U/L (15-37); BICARBONATE 26.2 MEQ/L (21.0-32.0); BLOOD UREA NITROGEN 13 MG/DL (7-18); CHLORIDE 106 MEQ/L (98-107); GLOMERULAR FILTRATION RATE 85 ML/MIN (>89); SODIUM (NA) 140 MEQ/L (136-145)
[2016-12-16 05:28] LABS: POTASSIUM 3.8 MEQ/L (3.5-5.1)
[2016-12-16] MEDS ORDERED: LEVOTHYROXINE SODIUM 75 MCG TAB PO SCH (06:00)
[2016-12-16] MEDS ORDERED: LEVOTHYROXINE SODIUM 100 MCG TAB PO SCH (06:00)
[2016-12-16 08:00] VITALS: BP 159/74; PULSE 62; RESP 16; TEMP 97.9; O2SAT 93
[2016-12-16] MEDS: RESP: ALBUTEROL 2.5 MG/IPRATROPIUM 0.5 MG NEB (SCH) INH ×2 (08:00→08:36)
--- NOTE | 2016-12-16 08:05 | HHI.DCPOC ---
Discharge Care Plan Diagnosis: (1) Acute pancreatitis Goals to Promote Your Health * To prevent worsening of your condition and complications, follow up with PCP within 1 week. Directions to Meet Your Goals Take your medications as prescribed Follow your dietary instruction Follow activity as directed Keep your appointments as scheduled Take your immunizations and boosters as scheduled If your symptoms worsen call your PCP, if no PCP go to Urgent Care Center or Emergency Room Smoking is Dangerous to Your Health. Avoid second hand smoke Call the 24-hour hour crisis hotline for domestic abuse at Chelo Camejo MD Dec 16, 2016 08:05
--- NOTE | 2016-12-16 08:13 | HHI.FPPN ---
Subjective Remarks Patient doing better, abd pain improved. Tolerated mashed potatoes for dinner last night. No n/v. No bowel movement. (Chelo Camejo MD) Objective Vitals Vital Signs Date Time Temp Pulse Resp B/P Pulse Ox O2 Delivery O2 Flow Rate FiO2 12/16/16 04:00 98.5 66 18 162/77 95 12/16/16 00:19 92 Nasal Cannula 1.50 12/16/16 00:00 97.8 68 20 159/72 95 12/15/16 20:00 97.2 55 20 177/79 97 12/15/16 17:40 58 16 178/81 99 Nasal Cannula 2 12/15/16 15:25 62 16 173/85 99 Nasal Cannula 2 12/15/16 15:20 66 16 190/84 99 Nasal Cannula 2 12/15/16 14:03 81 16 211/82 96 Nasal Cannula 2 12/15/16 14:00 97 Nasal Cannula 2.00 12/15/16 12:29 16 12/15/16 12:21 70 16 200/125 96 Nasal Cannula 2 12/15/16 11:30 48 16 191/84 98 Room Air I/O 12/15/16 12/15/16 12/15/16 12/16/16 12/16/16 12/16/16 07:00 15:00 23:00 07:00 15:00 23:00 Intake Total 0 ml 1255 ml Output Total 500 ml 500 ml Balance -500 ml 755 ml Intake Oral 0 ml 0 ml IV Total 1255 ml Output Urine Total 500 ml 500 ml # Voids 2 # Bowel Movements 0 (Chelo Camejo MD) Result Diagram: 12/16/16 0336 12/16/16 0336 Objective Remarks This is an alert, hydrated male, in no acute distress. His is with him. He is hard of hearing. Conjunctiva and sclerae clear Oral mucous membranes moist, he has dentures Neck supple without mass or lymphadenopathy or thyromegaly Heart is regular. Lungs clear to auscultation Abdomen reveals scant bowel sounds, mildly tender in the upper abdomen to palpation. Extremities moves all, good pulses in the dorsalis pedis bilaterally (Chelo Camejo MD) Urinary Catheter: No (Chelo Camejo MD) Vascular Central Line Catheter: No (Chelo Camejo MD) A/P Assessment and Plan 76-year-old male with PMH significant for CVA, HTN, recurrent pancreatitis. Admitted for pancreatitis sdw: Drs. Lion and Josephine Discharge Planning possible home later today (Chelo Camejo MD) Attending Attestation Patient seen and examined. Case reviewed and discussed with the resident team. Agree with plan of care as discussed with me and documented in the resident note. (Viri Lion MD) Problem List: (1) Acute pancreatitis Status: Acute Plan: History of recurrent pancreatitis despite a cholecystectomy. Presented due to acute onset of abdominal pain that woke him up from sleep on day of admission. Lipase elevated at around 40,000 on admission, decreased to 4,000 today. -Mild leukocytosis -CMP, ABG unremarkable -EKG and troponin x1 unremarkable except for sinus bradycardia -Fluid hydration, see rate below -incentive spirometry -Advancing diet, will dc later today if tolerating po GI consulted: appreciate recommendations Imaging: * MRCP: Minimal fusiform dilation of the proximal portion of the main pancreatic duct measuring 6 mm; no biliary dilation or filing defect. Acute pancreatitis. * Abd CT: Pancreatitis without evidence of abscess, pseudocyst or other complication * CXR: Chronic interstitial fibrosis but otherwise unremarkable for acute disease. (2) Hypertension Status: Chronic Plan: Reports that he has been trying to wean himself off of his home blood pressure medications. BP elevated to systolic 160-170s overnight. -Will resume recommended home dosing as patient's blood pressure has been elevated -continue home amlodipine, Losartan -Vasotec PRN -Will add hydralazine if BP remains elevated (3) Atrial fibrillation Status: Chronic Plan: Reported history of Afib which is not present on EKG -will monitor (4) Nutrition, metabolism, and development symptoms Status: Acute Plan: Diet: Regular diet Fluids: NS at 175 mls/hr Electrolytes: Unremarkable DVT prophylaxis: Lovenox GI prophylaxis: Continue home PPI Chronic conditions: * Allergies: Continue home Claritin, Singulair * Hypothyroidism: Levothyroxine 175mg * CVA: aspirin and plavix (Chelo Camejo MD) Problem Qualifiers (1) Acute pancreatitis: Qualified Code: K85.90 - Acute pancreatitis without infection or necrosis, unspecified pancreatitis type Chelo Camejo MD Dec 16, 2016 08:13 Viri Lion MD Dec 16, 2016 13:11
[2016-12-16 08:39] VITALS: O2SAT 92
[2016-12-16] MEDS ORDERED: MONTELUKAST SODIUM 10 MG TAB PO SCH (09:00)
[2016-12-16] MEDS ORDERED: PANTOPRAZOLE SOD 20 MG DELAYED RELEASE TAB PO SCH (09:00)
[2016-12-16] MEDS ORDERED: FOLIC ACID 1 MG TAB PO SCH (09:00)
[2016-12-16] MEDS: SODIUM CHLORIDE 0.9% FLUSH 10 ML FLUSH IV FLUSH SCH (09:00)
[2016-12-16] MEDS ORDERED: NON-FORMULARY DRUG (Levothyroxine (Synthroid) 175 MCG) PO SCH (09:00)
[2016-12-16] MEDS ORDERED: LORATADINE 10 MG TAB PO SCH (09:00)
[2016-12-16] MEDS ORDERED: CLOPIDOGREL 75 MG TAB PO SCH (09:00)
[2016-12-16] MEDS: LOSARTAN 50 MG TAB PO SCH (09:02)
[2016-12-16] MEDS: SODIUM CHLOR 0.9% 1000 ML INJ 1,000 ML IV SCH (09:03)
[2016-12-16] MEDS: DOCUSATE SODIUM 100 MG CAP PO SCH (09:08)
--- NOTE | 2016-12-16 09:42 | HHI.PR ---
Subjective Remarks feels better today less abdominal pain pt was given diet yesterday day. Had some pain after eating. labs reviewed. Lipase increased today. Objective Vital Signs Date Time Temp Pulse Resp B/P Pulse Ox O2 Delivery O2 Flow Rate FiO2 12/16/16 08:39 92 Nasal Cannula 21 12/16/16 04:00 98.5 66 18 162/77 95 12/16/16 00:19 92 Nasal Cannula 1.50 12/16/16 00:00 97.8 68 20 159/72 95 12/15/16 20:00 97.2 55 20 177/79 97 12/15/16 17:40 58 16 178/81 99 Nasal Cannula 2 12/15/16 15:25 62 16 173/85 99 Nasal Cannula 2 12/15/16 15:20 66 16 190/84 99 Nasal Cannula 2 12/15/16 14:03 81 16 211/82 96 Nasal Cannula 2 12/15/16 14:00 97 Nasal Cannula 2.00 12/15/16 12:29 16 12/15/16 12:21 70 16 200/125 96 Nasal Cannula 2 12/15/16 11:30 48 16 191/84 98 Room Air I/O 12/15/16 12/15/16 12/15/16 12/16/16 12/16/16 12/16/16 07:00 15:00 23:00 07:00 15:00 23:00 Intake Total 0 ml 1255 ml Output Total 500 ml 500 ml Balance -500 ml 755 ml Intake Oral 0 ml 0 ml IV Total 1255 ml Output Urine Total 500 ml 500 ml # Voids 2 # Bowel Movements 0 Result Diagram: 12/16/16 0336 12/16/16 0336 Imaging reviewed Objective Remarks GENERAL: Well-nourished, well-developed patient. SKIN: Warm and dry. HEAD: Normocephalic. EYES: No scleral icterus. No injection or drainage. NECK: Supple, trachea midline. No JVD or lymphadenopathy. CARDIOVASCULAR: Regular rate and rhythm without murmurs, gallops, or rubs. RESPIRATORY: Breath sounds equal bilaterally. No accessory muscle use. GASTROINTESTINAL: Abdomen soft, mild tender tender, nondistended. no rebound tenderness EXTREMITIES: No cyanosis, or edema. NEUROLOGICAL: Awake, alert, and oriented x 3. Non-focal. Medications and IVs Assessment and Plan Problem List: (1) Acute pancreatitis Status: Acute (2) Abdominal pain Status: Acute Assessment and Plan 1. Bolus 500 cc fluid today 2. Slowly increase diet as tolerated. 3. Will need outpt follow up with GI (Dr Miller) after discharge 4. Will likely need out pt Endoscopic Ultrasound to eval for occult pancreas pathology once acute symptoms have resolved. 5. Discussed with pt and family. Problem Qualifiers (1) Acute pancreatitis: Qualified Code: K85.90 - Acute pancreatitis without infection or necrosis, unspecified pancreatitis type (2) Abdominal pain: Qualified Code: R10.10 - Pain of upper abdomen Aldo Muhammad MD Dec 16, 2016 09:42
[2016-12-16 12:00] VITALS: BP 143/66; PULSE 62; RESP 16; TEMP 98.4; O2SAT 94
[2016-12-16] MEDS ORDERED: AMLO10 PO (14:30)
== END 2016-12-16 15:25 | disposition home or self-care (01) | DRG 440 ==
LOC: NEPE 04:30 → NEDA 08:27 → NEDH 12:35 → NEDA 15:20 → N07A 18:50
PROVIDERS: ADMIT Family Medicine; ATTEND Family Medicine
DX: K85.90 Acute pancreatitis without necrosis or infection, unspecified (principal); I48.91 Unspecified atrial fibrillation; I69.391 Dysphagia following cerebral infarction; K86.1 Other chronic pancreatitis; R13.10 Dysphagia, unspecified; K80.50 Calculus of bile duct without cholangitis or cholecystitis without obstruction; I10 Essential (primary) hypertension; E78.5 Hyperlipidemia, unspecified; E03.9 Hypothyroidism, unspecified; R73.03 Prediabetes; E78.00 Pure hypercholesterolemia, unspecified; H91.90 Unspecified hearing loss, unspecified ear; K21.9 Gastro-esophageal reflux disease without esophagitis; Z87.891 Personal history of nicotine dependence
CPT/HCPCS: 36600; 71010; 74177; 74181; 76377; 80053; 81001; 82805; 83605; 83690; 84484; 85025; 85610; 85730; 93005; 94150; 94640; 94664; 96361; 96374; 96375; 96376; J1170; J1650; J2270; J2405; J7030; Q9967

== ENCOUNTER 2017-05-15 01:20 | Inpatient (IN) | payer MEDICARE, OTHER ==
[2017-05-15] VITALS (11 sets, daily range): BP systolic 133–166; BP diastolic 68–80; PULSE 48–67; RESP 16–20; TEMP 98.1–98.9; O2SAT 92–97
[~2017-05-15] VITALS: Ht 182.9 cm; Wt 86.0 kg
[~2017-05-15 01:20] MED LIST changes: +AMLO10 PO; -AMLO5TAB96 PO; +CHOL100025 CHEW; -CLOP75 PO; +CLOP75TA PO; -COZA50TA PO; -CYCL20CR PO; +FENO1TAB46 PO; +FOLI5CAP PO; +LACTCAP8 PO; -LEVO.075 PO; +LORA10TA PO; +LOSA50TA PO; -Losartan Potassium PO; +METH2.5T PO; +MONT10TA4 PO; +OMEP20TA PO; -OMEP20TA39 PO; +PYRI100T PO; +SYNT175T PO; +VITA100T15 PO; -WAL-10TA2 PO
[2017-05-15] MEDS ORDERED: SODIUM CHLOR 0.9% 1000 ML INJ 1,000 ML IV SCH (01:32)
[2017-05-15] MEDS ORDERED: SODIUM CHLORIDE 0.9% FLUSH 10 ML FLUSH IV FLUSH PRN ×2 (01:45→03:30)
[2017-05-15 01:52] LABS: BLOOD, URINE NEG (NEG); COMMENT (UR) CULT NOT INDICATED; CULTURE IF INDICATED CULT NOT INDICATED; GLUCOSE,URINE NEG (NEG); HYALINE CAST, URINE 2 /lpf (RARE); KETONE, URINE NEG (NEG); MUCUS URINE FEW /lpf (OCC); NITRITE,URINE NEG (NEG); PH, URINE 6.5 (5.0-8.5); URINE COLOR YELLOW (YELLW/STRAW)
[2017-05-15 01:54] LABS: AUTOMATED NEUTROPHIL # 6.1 TH/MM3 (1.8-7.7); BASOPHIL % 0.4 % (0.0-2.0); EOSINOPHIL # 0.4 TH/MM3 (0-0.4); EOSINOPHIL % 3.3 % (0.0-4.0); HEMATOCRIT 44.3 % (39.0-51.0); HEMO FLAGS DIFF FINAL; LYMPH % 31.8 % (9.0-44.0); LYMPHOCYTE # 3.5 TH/MM3 (1.0-4.8); MEAN CELL VOLUME 85.1 FL (80.0-100.0); MEAN CORPUSCULAR HEMOGLOBIN 28.5 PG (27.0-34.0); MEAN CORPUSCULAR HGB CONC 33.4 % (32.0-36.0); MONO % 8.7 % (0.0-8.0); NEUT % 55.8 % (16.0-70.0); PLATELET COUNT 187 TH/MM3 (150-450); RED CELL DISTRIBUTION WIDTH 14.1 % (11.6-17.2)
[2017-05-15 02:00] LABS: APTT (PATIENT) 26.8 SEC (24.3-30.1); PROTHROMBIN TIME - PATIENT 11.2 SEC (9.8-11.6)
[2017-05-15 02:04] LABS: ALT (GPT) 20 U/L (12-78); ANION GAP 8 MEQ/L (5-15); AST (GOT) 19 U/L (15-37); BICARBONATE 27.5 MEQ/L (21.0-32.0); BLOOD UREA NITROGEN 17 MG/DL (7-18); CHLORIDE 106 MEQ/L (98-107); POTASSIUM 3.9 MEQ/L (3.5-5.1); SODIUM (NA) 141 MEQ/L (136-145)
[2017-05-15 02:08] LABS: ALKALINE PHOSPHATASE 88 U/L (45-117); TOTAL BILIRUBIN ADULT 0.3 MG/DL (0.2-1.0)
--- NOTE | 2017-05-15 02:13 | RADRPT ---
EXAM DATE/TIME: 05/15/2017 01:50 [facility] COMPARISON: CHEST SINGLE AP, December 15, 2016, 11:14. INDICATIONS : Abdominal pain. MEDICAL HISTORY : Chronic obstructive pulmonary disease. Pancreatitis. Cardiovascular disease. Hypertension SURGICAL HISTORY : Cholecystectomy. ENCOUNTER: Initial ACUITY: 1 day PAIN SCORE: 0/10 LOCATION: Bilateral chest FINDINGS: Compare December 15. There is moderate severe basilar lung fibrosis and some pleural thickening. Finding s are similar to prior exam. No new consolidation or effusion. No pneumothorax. CONCLUSION: 1. Basilar pulmonary fibrosis with honeycombing. Findings similar to November 2016. Naresh Gonsalves MD on May 15, 2017 at 2:10 Board Certified Radiologist. This report was verified electronically.
--- NOTE | 2017-05-15 02:25 | PD ---
HPI Chief Complaint: Abdominal Pain Time Seen by Provider: 02:10 Travel History International Travel<30 days: No Contact w/Intl Traveler<30days: No Traveled to known affect area: No History of Present Illness HPI Patient is a 78-year-old male with history of CVA, hypertension, recurrent pancreatitis. Patient reports that he woke up around 12:30 AM this morning with epigastric abdominal pain. Patient reports the pain feels similar to when he was diagnosed with pancreatitis in the past. Patient reports that he has had multiple bouts of pancreatitis, reports that no one can figure out why he has had pancreatitis. Patient endorses that he has history of cholecystectomy in the past. Reports that he was told that he may have retained stones. Patient with no nausea or vomiting, no chest pain or shortness breath at this time. Patient denies any alcohol abuse. Patient reports that his last bout of pancreatitis was in November. PFSH Past Medical History Arthritis: Yes Autoimmune Disease: No Anxiety: No Depression: No Heart Rhythm Problems: Yes (A FIB) Cancer: No Cardiovascular Problems: Yes High Cholesterol: Yes Chemotherapy: No Chest Pain: No COPD: Yes Cerebrovascular Accident: Yes (2001 AN 2004 2014) Diabetes: No Diminished Hearing: Yes ([facility]) Endocrine: No Gastrointestinal Disorders: Yes (PANCREATITIS, GALL BLADDER PROBLEMS) GERD: Yes Genitourinary: No Hypertension: Yes Immune Disorder: No Implanted Vascular Access Dvce: No Musculoskeletal: Yes Neurologic: No Psychiatric: No Reproductive: No Respiratory: Yes Immunizations Current: Yes Radiation Therapy: No Thyroid Disease: Yes Tetanus Vaccination: Unknown Influenza Vaccination: Yes Past Surgical History Cholecystectomy: Yes (2013) Eye Surgery: Yes Pacemaker: No Other Surgery: Yes Social History Alcohol Use: No Tobacco Use: No Substance Use: No Allergies-Medications (Allergen,Severity, Reaction): Coded Allergies: No Known Allergies (Verified , U, 05/15/17) Reported Meds & Prescriptions Reported Meds & Active Scripts Active Norvasc (Amlodipine Besylate) 10 Mg Tab 10 Mg PO DAILY Reported Probiotic (Lactobacillus Acidophilus) 1 Cap Cap 3 Cap PO DAILY Vitamin B-6 (Pyridoxine HCl) 100 Mg Tab 100 Mg PO DAILY Vitamin B12 (Cyanocobalamin) 100 Mcg Tab 2,500 Mcg PO DAILY Vitamin D3 (Cholecalciferol) 1,000 Unit Chew 1,000 Units CHEW DAILY Folic Acid 5 Mg Cap 1 Mg PO DAILY Methotrexate 2.5 Mg Tab 2.5 Mg PO Q7D Omeprazole 20 Mg Tab 20 Mg PO DAILY Fenofibrate 40 Mg Tab 34 Mg PO DAILY Clopidogrel (Clopidogrel Bisulfate) 75 Mg Tab 75 Mg PO DAILY Synthroid (Levothyroxine Sodium) 175 Mcg Tab 175 Mcg PO DAILY Montelukast (Montelukast Sodium) 10 Mg Tab 10 Mg PO DAILY Loratadine 10 Mg Tab 10 Mg PO DAILY Losartan (Losartan Potassium) 50 Mg Tab 50 Mg PO BID Review of Systems General / Constitutional: No: Fever Eyes: No: Visual changes HENT: No: Headaches Cardiovascular: No: Chest Pain or Discomfort Respiratory: No: Shortness of Breath Gastrointestinal: Positive: Abdominal Pain, No: Nausea, Vomiting Genitourinary: No: Dysuria Musculoskeletal: No: Pain Skin: No Rash Neurologic: No: Weakness Psychiatric: No: Depression Endocrine: No: Polydipsia Hematologic/Lymphatic: No: Easy Bruising Physical Exam Narrative GENERAL: Mild distress SKIN: Focused skin assessment warm/dry. HEAD: Atraumatic. Normocephalic. EYES: Pupils equal and round. No scleral icterus. No injection or drainage. ENT: No nasal bleeding or discharge. Mucous membranes pink and moist. NECK: Trachea midline. No JVD. CARDIOVASCULAR: Regular rate and rhythm. No murmur appreciated. RESPIRATORY: No accessory muscle use. Clear to auscultation. Breath sounds equal bilaterally. GASTROINTESTINAL: Abdomen soft, tender to the epigastrium, nondistended. Hepatic and splenic margins not palpable. MUSCULOSKELETAL: No obvious deformities. No clubbing. No cyanosis. No edema. NEUROLOGICAL: Awake and alert. No obvious cranial nerve deficits. Motor grossly within normal limits. Normal speech. PSYCHIATRIC: Appropriate mood and affect; insight and judgment normal. Data Data Last Documented VS Vital Signs Date Time Temp Pulse Resp B/P (MAP) Pulse Ox O2 Delivery O2 Flow Rate FiO2 05/15/17 02:52 18 05/15/17 01:26 98.1 48 165/80 (108) 97 Orders Orders Complete Blood Count With Diff (05/15/17 01:32) Comprehensive Metabolic Panel (05/15/17 01:32) Lipase (05/15/17 01:32) Prothrombin Time / Inr (Pt) (05/15/17 01:32) Act Partial Throm Time (Ptt) (05/15/17 01:32) Urinalysis - C+S If Indicated (05/15/17 01:32) Iv Access Insert/Monitor (05/15/17 01:32) Ecg Monitoring (05/15/17 01:32) Oximetry (05/15/17 01:32) NPO (05/15/17 01:32) Sodium Chlor 0.9% 1000 Ml Inj (Ns 1000 M (05/15/17 01:32) Sodium Chloride 0.9% Flush (Ns Flush) (05/15/17 01:45) Electrocardiogram (05/15/17 01:32) Chest, Single Ap (05/15/17 01:32) Ct Abd/Pel W Iv Contrast(Rout) (05/15/17 02:18) Morphine Inj (Morphine Inj) (05/15/17 02:30) Iohexol 350 Inj (Omnipaque 350 Inj) (05/15/17 02:47) Admit Order (Ed Use Only) (05/15/17 03:30) Labs Laboratory Tests Test 05/15/17 01:40 White Blood Count 11.0 TH/MM3 Red Blood Count 5.20 MIL/MM3 Hemoglobin 14.8 GM/DL Hematocrit 44.3 % Mean Corpuscular Volume 85.1 FL Mean Corpuscular Hemoglobin 28.5 PG Mean Corpuscular Hemoglobin Concent 33.4 % Red Cell Distribution Width 14.1 % Platelet Count 187 TH/MM3 Mean Platelet Volume 7.8 FL Neutrophils (%) (Auto) 55.8 % Lymphocytes (%) (Auto) 31.8 % Monocytes (%) (Auto) 8.7 % Eosinophils (%) (Auto) 3.3 % Basophils (%) (Auto) 0.4 % Neutrophils # (Auto) 6.1 TH/MM3 Lymphocytes # (Auto) 3.5 TH/MM3 Monocytes # (Auto) 1.0 TH/MM3 Eosinophils # (Auto) 0.4 TH/MM3 Basophils # (Auto) 0.0 TH/MM3 CBC Comment DIFF FINAL Differential Comment Prothrombin Time 11.2 SEC Prothromb Time International Ratio 1.0 RATIO Activated Partial Thromboplast Time 26.8 SEC Urine Color YELLOW Urine Turbidity CLEAR Urine pH 6.5 Urine Specific [place] 1.021 Urine Protein NEG mg/dL Urine Glucose (UA) NEG mg/dL Urine Ketones NEG mg/dL Urine Occult Blood NEG Urine Nitrite NEG Urine Bilirubin NEG Urine Urobilinogen 2.0 MG/DL Urine Leukocyte Esterase NEG Urine RBC LESS THAN 1 /hpf Urine WBC 1 /hpf Urine Hyaline Casts 2 /lpf Urine Mucus FEW /lpf Microscopic Urinalysis Comment CULT NOT INDICATED Blood Urea Nitrogen 17 MG/DL Creatinine 1.23 MG/DL Random Glucose 118 MG/DL Total Protein 7.5 GM/DL Albumin 3.7 GM/DL Calcium Level 9.4 MG/DL Alkaline Phosphatase 88 U/L Aspartate Amino Transf (AST/SGOT) 19 U/L Alanine Aminotransferase (ALT/SGPT) 20 U/L Total Bilirubin 0.3 MG/DL Sodium Level 141 MEQ/L Potassium Level 3.9 MEQ/L Chloride Level 106 MEQ/L Carbon Dioxide Level 27.5 MEQ/L Anion Gap 8 MEQ/L Lipase 61809 U/L [facility] Medical Decision Making Medical Screen Exam Complete: Yes Emergency Medical Condition: Yes Interpretation(s) EKG at 0136: sinus dru at 43bpm, qt/qtc: 487/434, non specific t wave changes Vital Signs Date Time Temp Pulse Resp B/P (MAP) Pulse Ox O2 Delivery O2 Flow Rate FiO2 05/15/17 01:43 18 05/15/17 01:26 98.1 48 18 165/80 (108) 97 Laboratory Tests Test 05/15/17 01:40 White Blood Count 11.0 TH/MM3 (4.0-11.0) Red Blood Count 5.20 MIL/MM3 (4.50-5.90) Hemoglobin 14.8 GM/DL (13.0-17.0) Hematocrit 44.3 % (39.0-51.0) Mean Corpuscular Volume 85.1 FL (80.0-100.0) Mean Corpuscular Hemoglobin 28.5 PG (27.0-34.0) Mean Corpuscular Hemoglobin Concent 33.4 % (32.0-36.0) Red Cell Distribution Width 14.1 % (11.6-17.2) Platelet Count 187 TH/MM3 (150-450) Mean Platelet Volume 7.8 FL (7.0-11.0) Neutrophils (%) (Auto) 55.8 % (16.0-70.0) Lymphocytes (%) (Auto) 31.8 % (9.0-44.0) Monocytes (%) (Auto) 8.7 % (0.0-8.0) Eosinophils (%) (Auto) 3.3 % (0.0-4.0) Basophils (%) (Auto) 0.4 % (0.0-2.0) Neutrophils # (Auto) 6.1 TH/MM3 (1.8-7.7) Lymphocytes # (Auto) 3.5 TH/MM3 (1.0-4.8) Monocytes # (Auto) 1.0 TH/MM3 (0-0.9) Eosinophils # (Auto) 0.4 TH/MM3 (0-0.4) Basophils # (Auto) 0.0 TH/MM3 (0-0.2) CBC Comment DIFF FINAL Differential Comment Prothrombin Time 11.2 SEC (9.8-11.6) Prothromb Time International Ratio 1.0 RATIO Activated Partial Thromboplast Time 26.8 SEC (24.3-30.1) Urine Color YELLOW (YELLW/STRAW) Urine Turbidity CLEAR (CLEAR) Urine pH 6.5 (5.0-8.5) Urine Specific [place] 1.021 (1.002-1.035) Urine Protein NEG mg/dL (NEG-TRACE) Urine Glucose (UA) NEG mg/dL (NEG) Urine Ketones NEG mg/dL (NEG) Urine Occult Blood NEG (NEG) Urine Nitrite NEG (NEG) Urine Bilirubin NEG (NEG) Urine Urobilinogen 2.0 MG/DL (LESS THAN Urine Leukocyte Esterase NEG (NEG) Urine RBC LESS THAN 1 /hpf (0-3) Urine WBC 1 /hpf (0-5) Urine Hyaline Casts 2 /lpf (RARE) Urine Mucus FEW /lpf (OCC) Microscopic Urinalysis Comment CULT NOT INDICATED Blood Urea Nitrogen 17 MG/DL (7-18) Creatinine 1.23 MG/DL (0.60-1.30) Random Glucose 118 MG/DL (74-106) Total Protein 7.5 GM/DL (6.4-8.2) Albumin 3.7 GM/DL (3.4-5.0) Calcium Level 9.4 MG/DL (8.5-10.1) Alkaline Phosphatase 88 U/L (45-117) Aspartate Amino Transf (AST/SGOT) 19 U/L (15-37) Alanine Aminotransferase (ALT/SGPT) 20 U/L (12-78) Total Bilirubin 0.3 MG/DL (0.2-1.0) Sodium Level 141 MEQ/L (136-145) Potassium Level 3.9 MEQ/L (3.5-5.1) Chloride Level 106 MEQ/L (98-107) Carbon Dioxide Level 27.5 MEQ/L (21.0-32.0) Anion Gap 8 MEQ/L (5-15) Lipase 90013 U/L (73-393) Differential Diagnosis Differential includes pancreatitis, gastritis, gastroenteritis. Narrative Course Patient is a 78-year-old male who presents to emergency with complaints of epigastric pain. His history of pancreatitis in the past, reports that his symptoms feel exactly the same as when he was diagnosed with gallstone pancreatitis in the past. Labs including lipase ordered. Lipase 29,565. CT of abdomen and pelvis ordered to evaluate pancreas. Morphine ordered for pain control. CT of abdomen and pelvis with acute pancreatitis. Plan to admit to medicine service Case reviewed with Dr. Tipton who accepts pt to his service Diagnosis Primary Impression: Acute pancreatitis Qualified Codes: K85.90 - Acute pancreatitis without necrosis or infection, unspecified Admitting Information Admitting Physician Requests: Amna Rajan DO May 15, 2017 02:25
[2017-05-15] MEDS ORDERED: MORPHINE SULFATE 4 MG/ML INJ IV PUSH ONE (02:30)
[2017-05-15] MEDS ORDERED: IOHEXOL 350 MG/ML 10 ML VIAL (for RAD DIAG) IVCONTRAST ONE (02:47)
--- NOTE | 2017-05-15 03:02 | RADRPT ---
EXAM DATE/TIME: 05/15/2017 02:47 [facility] COMPARISON: CT ABDOMEN & PELVIS W CONTRAST, December 15, 2016, 7:17. INDICATIONS : Mid abdominal pain. IV CONTRAST: 95 cc Omnipaque 350 (iohexol) IV ORAL CONTRAST: No oral contrast ingested. RADIATION DOSE: 10.19 CTDIvol (mGy) MEDICAL HISTORY : Cardiovascular disease. Chronic obstructive pulmonary disease. Benign prostatic hyperplasia, (BPH)CVA . GERD. Hypertension. Pancreatitis. SURGICAL HISTORY : Cholecystectomy. ENCOUNTER: Initial ACUITY: 1 day PAIN SCALE: 4/10 LOCATION: Bilateral abdomen TECHNIQUE: Volumetric scanning of the abdomen and pelvis was performed. Using automated exposure control and ad justment of the mA and/or kV according to patient size, radiation dose was kept as low as reasonably achievable to obtain optimal diagnostic quality images. DICOM format image data is available electro nically for review and comparison. FINDINGS: Lung bases demonstrate pulmonary fibrosis, relatively stable. Mild fatty liver. Spleen, adrenals unre markable. There is peripancreatic inflammatory change characteristic of acute pancreatitis. No abscess, obstruc tion, free fluid or free air. Stable bilateral renal cysts since November. Previous cholecystectomy. No free fluid in the bowel obstruction. No adenopathy. CONCLUSION: 1. Acute pancreatitis. No evidence for pseudocyst formation. Findings similar to November 2016. Stable r enal cysts. Mild fatty liver. Naresh Gonsalves MD on May 15, 2017 at 2:58 Board Certified Radiologist. This report was verified electronically.
--- NOTE | 2017-05-15 03:41 | HHI.HP ---
[facility] Adolfo Guy Admission Diagnosis Acute pancreatitis Diagnoses: Chief Complaint: abdominal pain Travel History International Travel<30 Days: No Contact w/Intl Traveler <30 Da: No Traveled to Known Affected Are: No History of Present Illness Written by FLORIDA Faustin acting as scribe for [Charlotteo] on 05/15/17 at 03:35. 78 y/o male with a history of CVA, HTN, hypothyroid, HLD, and gerd presented to the ED with complaints of abdominal pain. Patient states he began to have abdominal pain today and states it is sharp epigastric pain, 10/10, improved to 8/10 with morphine, no radiation. He states he did feel hot and was sweating at home. Denies any nausea, vomiting, sob or diarrhea. In November he was found to have a lipase > 68012, and underwent an EUS outpatient, and per the nothing was ever discovered. Dr. Miller is his GI Doctor Review of Systems Except as stated in HPI: all other systems reviewed are Neg Past Family Social History Past Medical History CVA HLD HTN Hypothyroid Gerd Past Surgical History Cholecystectomy Cataracts Reported Medications Reported Meds & Active Scripts Active Norvasc (Amlodipine Besylate) 10 Mg Tab 10 Mg PO DAILY Reported Probiotic (Lactobacillus Acidophilus) 1 Cap Cap 3 Cap PO DAILY Vitamin B-6 (Pyridoxine HCl) 100 Mg Tab 100 Mg PO DAILY Vitamin B12 (Cyanocobalamin) 100 Mcg Tab 2,500 Mcg PO DAILY Vitamin D3 (Cholecalciferol) 1,000 Unit Chew 1,000 Units CHEW DAILY Folic Acid 5 Mg Cap 1 Mg PO DAILY Methotrexate 2.5 Mg Tab 2.5 Mg PO Q7D Omeprazole 20 Mg Tab 20 Mg PO DAILY Fenofibrate 40 Mg Tab 34 Mg PO DAILY Clopidogrel (Clopidogrel Bisulfate) 75 Mg Tab 75 Mg PO DAILY Synthroid (Levothyroxine Sodium) 175 Mcg Tab 175 Mcg PO DAILY Montelukast (Montelukast Sodium) 10 Mg Tab 10 Mg PO DAILY Loratadine 10 Mg Tab 10 Mg PO DAILY Losartan (Losartan Potassium) 50 Mg Tab 50 Mg PO BID Allergies: Coded Allergies: No Known Allergies (Verified , U, 05/15/17) Active Ordered Medications Current Medications Medications (Trade) Dose Ordered Sig/Evelio Route Start Time Stop Time Status Last Admin (NS Flush) 2 ml UNSCH PRN IV FLUSH 05/15/17 01:45 Sodium Chloride 1,000 ml @ 100 mls/hr Q10H IV 05/15/17 03:30 UNV (NS Flush) 2 ml UNSCH PRN IV FLUSH 05/15/17 03:30 UNV (NS Flush) 2 ml BID IV FLUSH 05/15/17 09:00 UNV Family History Patient denies any family history, no heart disease or cancer. Social History Tobacco use: Denies Alcohol use: Denies Illicit drug use: Denies Physical Exam Vital Signs Vital Signs Date Time Temp Pulse Resp B/P (MAP) Pulse Ox O2 Delivery O2 Flow Rate FiO2 05/15/17 02:52 18 05/15/17 01:43 18 05/15/17 01:26 98.1 48 18 165/80 (108) 97 Physical Exam GENERAL: This is a well-nourished, well-developed patient, in no apparent distress. SKIN: No rashes, ecchymoses or lesions. Cool and dry. HEAD: Atraumatic. Normocephalic. EYES: Pupils equal round and reactive. ENT: Nose without bleeding, purulent drainage or septal hematoma. Airway patent. NECK: Trachea midline. No JVD or lymphadenopathy. CARDIOVASCULAR: Regular rate and rhythm without murmurs, gallops, or rubs. RESPIRATORY: Diminished breath sounds bilaterally. No wheezes, rales, or rhonchi. GASTROINTESTINAL: Abdomen soft, epigastric tenderness, nondistended. No guarding. MUSCULOSKELETAL: Extremities without clubbing, cyanosis, or edema. No joint tenderness, effusion, or edema noted. No calf tenderness. NEUROLOGICAL: Awake and alert. Motor and sensory grossly within normal limits. Normal speech. Laboratory Laboratory Tests Test 05/15/17 01:40 White Blood Count 11.0 Red Blood Count 5.20 Hemoglobin 14.8 Hematocrit 44.3 Mean Corpuscular Volume 85.1 Mean Corpuscular Hemoglobin 28.5 Mean Corpuscular Hemoglobin Concent 33.4 Red Cell Distribution Width 14.1 Platelet Count 187 Mean Platelet Volume 7.8 Neutrophils (%) (Auto) 55.8 Lymphocytes (%) (Auto) 31.8 Monocytes (%) (Auto) 8.7 Eosinophils (%) (Auto) 3.3 Basophils (%) (Auto) 0.4 Neutrophils # (Auto) 6.1 Lymphocytes # (Auto) 3.5 Monocytes # (Auto) 1.0 Eosinophils # (Auto) 0.4 Basophils # (Auto) 0.0 CBC Comment DIFF FINAL Differential Comment Prothrombin Time 11.2 Prothromb Time International Ratio 1.0 Activated Partial Thromboplast Time 26.8 Urine Color YELLOW Urine Turbidity CLEAR Urine pH 6.5 Urine Specific [place] 1.021 Urine Protein NEG Urine Glucose (UA) NEG Urine Ketones NEG Urine Occult Blood NEG Urine Nitrite NEG Urine Bilirubin NEG Urine Urobilinogen 2.0 Urine Leukocyte Esterase NEG Urine RBC LESS THAN 1 Urine WBC 1 Urine Hyaline Casts 2 Urine Mucus FEW Microscopic Urinalysis Comment CULT NOT INDICATED Blood Urea Nitrogen 17 Creatinine 1.23 Random Glucose 118 Total Protein 7.5 Albumin 3.7 Calcium Level 9.4 Alkaline Phosphatase 88 Aspartate Amino Transf (AST/SGOT) 19 Alanine Aminotransferase (ALT/SGPT) 20 Total Bilirubin 0.3 Sodium Level 141 Potassium Level 3.9 Chloride Level 106 Carbon Dioxide Level 27.5 Anion Gap 8 Lipase 88739 Result Diagram: 05/15/17 01405/15/[address] shows acute pancreatitis, no evidence for pseudocyst formation. Mild fatty liver. Caprini VTE Risk Assessment Caprini VTE Risk Assessment: Mod/High Risk (score >= 2) Caprini Risk Assessment Model Point Value = 1 Point Value = 2 Point Value = 3 Point Value = 5 Age 41-60 Minor surgery BMI > 25 kg/m2 Swollen legs Varicose veins or History of unexplained or recurrent spontaneous Oral contraceptives or hormone replacement Sepsis (< 1 month) Serious lung disease, including pneumonia (< 1 month) Abnormal pulmonary function Acute myocardial infarction Congestive heart failure (< 1 month) History of inflammatory bowel disease Medical patient at bed rest Age 61-74 Arthroscopic surgery Major open surgery (> 45 min) Laparoscopic surgery (> 45 min) Malignancy Confined to bed (> 72 hours) Immobilizing plaster cast Central venous access Age >= 75 History of VTE Family history of VTE Factor V Leiden Prothrombin [id number] Lupus anticoagulant Anticardiolipin antibodies Elevated serum homocysteine Heparin-induced thrombocytopenia Other congenital or acquired thrombophilia Stroke (< 1 month) Elective arthroplasty Hip, pelvis, or leg fracture Acute spinal cord injury (< 1 month) Prophylaxis Regimen Total Risk Factor Score Risk Level Prophylaxis Regimen 0-1 Low Early ambulation 2 Moderate Order ONE of the following: *Sequential Compression Device (SCD) *Heparin 5000 units SQ BID 3-4 Higher Order ONE of the following medications: *Heparin 5000 units SQ TID *Enoxaparin/Lovenox 40 mg SQ daily (WT < 150 kg, CrCl > 30 mL/min) *Enoxaparin/Lovenox 30 mg SQ daily (WT < 150 kg, CrCl > 10-29 mL/min) *Enoxaparin/Lovenox 30 mg SQ BID (WT < 150 kg, CrCl > 30 mL/min) AND/OR *Sequential Compression Device (SCD) 5 or more Highest Order ONE of the following medications: *Heparin 5000 units SQ TID (Preferred with Epidurals) *Enoxaparin/Lovenox 40 mg SQ daily (WT < 150 kg, CrCl > 30 mL/min) *Enoxaparin/Lovenox 30 mg SQ daily (WT < 150 kg, CrCl > 10-29 mL/min) *Enoxaparin/Lovenox 30 mg SQ BID (WT < 150 kg, CrCl > 30 mL/min) AND *Sequential Compression Device (SCD) Assessment and Plan Problem List: (1) Acute pancreatitis ICD Code: K85.90 - Acute pancreatitis Status: Acute (2) Hypertension ICD Code: I10 - Hypertension Status: Chronic Assessment and Plan 78 y/o male with a history of CVA, HTN, hypothyroid, HLD, and gerd presented to the ED with complaints of abdominal pain. Acute pancreatitis, lipase 29,565, patient with acute epigastric pain Abdomen CT reviewed and shows acute pancreatitis, no evidence for pseudocyst formation. Mild fatty liver. -Consult GI for recommendations -IVF for hydration -NPO Pain management with IV toradol and morphine HTN, chronic currently elevated likely due to pain -Resume home medications -Cont to monitor, will order prns if needed Abnormal CXR interpreted by me with pulmonary fibrosis. Denies SOB. Nebs and oxygen prn DVT prophylaxis: Heparin GI prophylaxis: Protonix This note was transcribed by FLORIDA Arias I, Dr. Derrick Tipton personally performed the history, physical exam, and medical decision making; and confirmed the accuracy of the information in the transcribed note. Authenticated by Dr. Derrick Tipton on 05/15/17 at 03:43. Discussed Condition With Patient and patients Physician Certification 2 Midnight Certification Type: Admission for Inpatient Services Order for Inpatient Services The services are ordered in accordance with Medicare regulations or non- Medicare payer requirements, as applicable. In the case of services not specified as inpatient-only, they are appropriately provided as inpatient services in accordance with the 2-midnight benchmark. Estimated LOS (days): 2 days is the estimated time the patient will need to remain in the hospital, assuming treatment plan goals are met and no additional complications. Post-Hospital Plan: Home Problem Qualifiers (1) Acute pancreatitis: Qualified Codes: K85.90 - Acute pancreatitis without necrosis or infection, unspecified Belia Vidal May 15, 2017 03:41 Derrick Tipton MD May 15, 2017 03:44
[2017-05-15] MEDS ORDERED: NALOXONE HCL 0.4 MG/ML AMP IV PRN (03:45)
[2017-05-15] MEDS ORDERED: ONDANSETRON HCL 4 MG/2 ML VIAL IVP PRN (03:45)
[2017-05-15] MEDS ORDERED: SENNOSIDES 8.6 MG TAB PO PRN (03:45)
[2017-05-15] MEDS ORDERED: KETOROLAC TROMETHAMINE 30 MG/ML (IVP) VIAL IVP PRN ×2 (03:45)
[2017-05-15] MEDS ORDERED: ACETAMINOPHEN 325 MG TAB PO PRN (03:45)
[2017-05-15] MEDS ORDERED: MORPHINE SULFATE 4 MG/ML INJ IV PRN (03:45)
[2017-05-15] MEDS ORDERED: MAGNESIUM HYDROXIDE SUSP 30 ML CUP PO PRN (03:45)
[2017-05-15] MEDS ORDERED: LACTULOSE SYRUP 20 GM/30 ML CUP PO PRN (03:45)
[2017-05-15] MEDS ORDERED: CLAR10CA3 PO (03:48)
[2017-05-15] MEDS ORDERED: PLAV75TA29 PO (03:48)
[2017-05-15] MEDS ORDERED: LEVO175T2 PO (03:51)
[2017-05-15] MEDS: PANTOPRAZOLE SODIUM 40 MG VIAL IV PUSH SCH (04:13)
[2017-05-15] MEDS: HEPARIN SODIUM - SQ 10,000 UNITS/ML VIAL SQ SCH ×3 (04:13→20:24)
[2017-05-15] MEDS: SODIUM CHLOR 0.9% 1000 ML INJ 1,000 ML IV SCH ×3 (04:13→20:26)
[2017-05-15] MEDS ORDERED: RESP: ALBUTEROL 2.5 MG/3 ML NEB (PRN) NEB (04:15)
[2017-05-15] MEDS ORDERED: ENALAPRILAT 1.25 MG/ML VIAL IV PRN (05:00)
[2017-05-15] MEDS ORDERED: cloNIDine HCL 0.1 MG TAB PO PRN (05:00)
[2017-05-15] MEDS: LEVOTHYROXINE SODIUM 75 MCG TAB PO SCH (05:53)
[2017-05-15] MEDS ORDERED: LEVOTHYROXINE SODIUM 100 MCG TAB PO SCH (07:00)
--- NOTE | 2017-05-15 07:51 | EKG ---
Date Performed: 05/15/2017 Time Performed: 01:36:42 PTAGE: 78 years EKG: SINUS BRADYCARDIA WITH OCCASIONAL SUPRAVENTRICULAR PREMATURE COMPLEXES NONSPECIFIC T-WAVE A BNORMALITY BORDERLINE ECG PREVIOUS TRACING : 12/15/2016 04.47 No significant change from previous tracing noted. DOCTOR: Hakeem Estrella Interpretating Date/Time 05/15/2017 07:50:31
[2017-05-15] MEDS: CLOPIDOGREL 75 MG TAB PO SCH (08:58)
[2017-05-15] MEDS: SODIUM CHLORIDE 0.9% FLUSH 10 ML FLUSH IV FLUSH SCH ×2 (09:00→20:24)
--- NOTE | 2017-05-15 10:50 | MB ---
cc: ZEE CASTORENA DATE OF CONSULTATION: 05/15/2017 DATE OF : 05/04/1939 REASON FOR GI CONSULTATION: Abdominal pain, epigastric pain, history of pancreatitis. HISTORY OF PRESENT ILLNESS This is a pleasant 78-year-old male who was admitted with recurrent pancreatitis. He has been followed by Dr. Miller in our practice in the past, also he has had endoscopic ultrasound by Dr. Muhammad recently in February. That examination failed to reveal an obvious etiology to his pancreatitis. The common bile duct was 10, 11 mm status post cholecystectomy. No obvious masses or stones or biliary obstruction were noted. The pancreatic parenchyma revealed mild chronic pancreatitis changes. He had been in his usual health. He denies alcohol use. Then he developed sudden onset of epigastric pain late last evening when he went to bed. He did note that he did eat some fried fish prior to that in the evening. It has improved with pain medications. His lipase was greater than 29,000 on this admission. In November he had a similar bout of pancreatitis where lipase was found to be 40,000. It is noted his liver enzymes are completely normal. I was asked to evaluate him further. MEDICATIONS Medications include: 1. Vitamin B6, B12 and D3. 2. Folic acid. 3. Methotrexate. 4. Omeprazole. 5. Fenofibrate. 6. Plavix. 7. Synthroid. 8. Montelukast. 9. Loratadine. 10. Losartan. ALLERGIES None. FAMILY HISTORY Negative from a GI standpoint. SOCIAL HISTORY Denies alcohol, he stopped drinking alcohol when he was 26 years old. He denies illicit drug use or smoking. REVIEW OF SYSTEMS 12-point review of systems as stated above. He denies any fever, jaundice, chills or weight loss. PHYSICAL EXAMINATION GENERAL: Well-developed male, alert and oriented x3, in no acute distress. VITAL SIGNS: Stable. HEENT: Exam is benign. NECK: Neck is supple. CARDIAC: S1-S2, regular rhythm. CHEST: Chest is clear. ABDOMEN: Abdomen is soft, nontender. Bowel sounds are present. No masses or organomegaly. EXTREMITIES: Without clubbing, cyanosis or edema. LABORATORY DATA Other labs, his white count was 11,000, hemoglobin 14.8, platelet count 187. Liver enzymes were completely normal. IMPRESSION Chronic recurrent pancreatitis. The etiology is undefined at this time. Potential etiologies could include microlithiasis, sphincter of Oddi dysfunction, idiopathic chronic pancreatitis or autoimmune disease. PLAN Would monitor the amylase and lipase. Would suggest starting the patient on pancreatic enzyme therapy to see his response. Would check BEN, IgG4 levels. Continue IV hydration, pain medications as needed. Will follow the patient with you, Dr. Jimenez will have the patient followed up as well. Attempt clear liquids if tolerated and followup closely. MD FAUZIA Fuller/AUDI /10:19 AM /10:27 AM
[2017-05-15] MEDS: LIPASE/PROTEASE/AMYLASE (24,000/76,000/120,000) CAP PO SCH ×2 (14:34→18:08)
[2017-05-16] VITALS: BP 143/67; PULSE 58; RESP 19; TEMP 97.6; O2SAT 93
[2017-05-16 04:00] VITALS: BP 134/72; PULSE 58; RESP 20; TEMP 96.5; O2SAT 92
[2017-05-16] MEDS: PANTOPRAZOLE SODIUM 40 MG VIAL IV PUSH SCH (04:42)
[2017-05-16] MEDS: HEPARIN SODIUM - SQ 10,000 UNITS/ML VIAL SQ SCH ×2 (04:42→13:28)
[2017-05-16] MEDS: LEVOTHYROXINE SODIUM 75 MCG TAB PO SCH (05:13)
[2017-05-16 06:09] LABS: AUTOMATED NEUTROPHIL # 4.5 TH/MM3 (1.8-7.7); BASOPHIL % 0.4 % (0.0-2.0); EOSINOPHIL # 0.4 TH/MM3 (0-0.4); EOSINOPHIL % 4.2 % (0.0-4.0); HEMATOCRIT 42.2 % (39.0-51.0); HEMO FLAGS DIFF FINAL; LYMPH % 33.6 % (9.0-44.0); LYMPHOCYTE # 2.9 TH/MM3 (1.0-4.8); MEAN CELL VOLUME 85.1 FL (80.0-100.0); MEAN CORPUSCULAR HEMOGLOBIN 29.1 PG (27.0-34.0); MEAN CORPUSCULAR HGB CONC 34.1 % (32.0-36.0); MONO % 9.3 % (0.0-8.0); NEUT % 52.5 % (16.0-70.0); PLATELET COUNT 152 TH/MM3 (150-450); RED BLOOD COUNT 4.96 MIL/MM3 (4.50-5.90); WHITE BLOOD COUNT 8.6 TH/MM3 (4.0-11.0)
[2017-05-16 06:23] LABS: BICARBONATE 24.7 MEQ/L (21.0-32.0); POTASSIUM 3.7 MEQ/L (3.5-5.1)
[2017-05-16] MEDS ORDERED: LEVOTHYROXINE SODIUM 100 MCG TAB PO SCH (07:00)
[2017-05-16 08:00] VITALS: BP 139/63; PULSE 51; RESP 18; TEMP 97.7; O2SAT 95
[2017-05-16] MEDS: CLOPIDOGREL 75 MG TAB PO SCH (08:32)
[2017-05-16] MEDS: SODIUM CHLORIDE 0.9% FLUSH 10 ML FLUSH IV FLUSH SCH (08:32)
[2017-05-16] MEDS: LIPASE/PROTEASE/AMYLASE (24,000/76,000/120,000) CAP PO SCH ×3 (08:32→17:40)
[2017-05-16] MEDS: SODIUM CHLOR 0.9% 1000 ML INJ 1,000 ML IV SCH (09:05)
--- NOTE | 2017-05-16 09:31 | HHI.GIFU ---
GI Follow-up Note Consult Follow-up Subjective: Patient laying in bed comfortably. no pain today. tolerating liquids Objective: PHYSICAL EXAMINATION: Vitals signs stable No fever . CHEST: Chest is clear to auscultation and percussion. . ABDOMEN: Soft, nondistended, nontender; no hepatosplenomegaly; bowel sounds are present in all four quadrants. EXTREMITIES: No clubbing, cyanosis, or edema. SKIN: Normal; no rash; no jaundice. CHIMNEY BUILDER: alert and oriented times three. Available Data (labs, X- Rays, Procedues) : lipase improved ASSESSMENT/PLAN: 1. Pancreatitis-improved PLAN: 1. advance diet anf check TG level It was a pleasure seeing Herb Sandoval. Thank you for this consult. Entered by: Tyler Alvares MD May 16, 2017 09:31
--- NOTE | 2017-05-16 09:43 | HHI.PR ---
Subjective Remarks Follow up for acute on chronic pancreatitis. Patient is doing well. Denies any abdominal pain, nausea, vomiting. Tolerating clear liquids well. Wants to advance diet. No fever, chills. Objective Vitals Vital Signs Date Time Temp Pulse Resp B/P (MAP) Pulse Ox O2 Delivery O2 Flow Rate FiO2 05/16/17 08:00 97.7 51 18 139/63 (88) 95 05/16/17 04:00 96.5 58 20 134/72 (92) 92 05/16/17 00:00 97.6 58 19 143/67 (92) 93 05/15/17 22:55 65 05/15/17 20:00 98.4 55 19 161/69 (99) 96 05/15/17 16:00 98.9 61 20 166/78 (107) 95 05/15/17 15:26 05/15/17 13:16 67 16 133/69 (90) 97 Room Air I/O 05/15/17 05/15/17 05/15/17 05/16/17 05/16/17 05/16/17 07:00 15:00 23:00 07:00 15:00 23:00 Intake Total 1000 ml 1884 ml 589 ml Output Total 1200 ml Balance 1000 ml 1884 ml -611 ml Intake Oral 120 ml IV Total 1000 ml 1764 ml 589 ml Output Urine Total 1200 ml # Voids 1 # Bowel Movements 0 Result Diagram: 05/16/17 0520 05/16/17 0450 Imaging Last Impressions Abdomen/Pelvis CT 05/15/17 0218 Signed Impressions: Service Date/Time: Monday, May 15, 2017 02:47 - CONCLUSION: 1. Acute pancreatitis. No evidence for pseudocyst formation. Findings similar to November 2016. Stable renal cysts. Mild fatty liver. Naresh Gonsalves MD Chest X-Ray 05/15/17 0132 Signed Impressions: Service Date/Time: Monday, May 15, 2017 01:50 - CONCLUSION: 1. Basilar pulmonary fibrosis with honeycombing. Findings similar to November 2016. Naresh Gonsalves MD Objective Remarks GENERAL: AOX3, NAD. SKIN: Warm and dry. HEAD: Normocephalic. EYES: No scleral icterus. No injection or drainage. NECK: Supple, trachea midline. No JVD or lymphadenopathy. CARDIOVASCULAR: Regular rate and rhythm without murmurs, gallops, or rubs. RESPIRATORY: Breath sounds equal bilaterally. No accessory muscle use. GASTROINTESTINAL: Abdomen soft, non-tender, nondistended. MUSCULOSKELETAL: No cyanosis, or edema. BACK: Nontender without obvious deformity. No CVA tenderness. Procedures None. A/P Problem List: (1) Acute pancreatitis ICD Code: K85.90 - Acute pancreatitis Status: Acute (2) Hypertension ICD Code: I10 - Hypertension Status: Chronic Assessment and Plan 78 y/o male with a history of CVA, HTN, hypothyroid, HLD, and gerd presented to the ED with complaints of abdominal pain. Acute pancreatitis, lipase 29,565, patient with acute epigastric pain. Repeat Lipase 1317. Abdomen CT reviewed and shows acute pancreatitis, no evidence for pseudocyst formation. Mild fatty liver. -GI consulted - recommended starting pancreatic enzyme. - Patient received fluid and pain medications. - Pancreatic enzyme was started. Patient reported significant improvements. He tolerated clear liquid and subsequently regular diet. Patient was evaluated again in the afternoon on 05/16/2017. He reported no abdominal pain, N/V. HTN - BP has been within reasonable range. - Will d/c home Amlodipine 10mg Qday and Losartan 50mg. I am afraid these BP medications may make him hypotensive. - Will start Amlodipine 2.5mg Qday which can be titrated up by his PCP. DVT prophylaxis: Heparin GI prophylaxis: Protonix Discharge patient to home Condition on discharge: Improved Regular Diet as tolerated Ad Coco activity Rx written: New Medications: Amlodipine 2.5 Mg Tab Pancrelipase (Creon) 24,000-76,000-120,000 Units Cap Continued Medications: Cholecalciferol (Vitamin D3) 1,000 Unit Chew Clopidogrel 75 Mg Tab Cyanocobalamin (Vitamin B12) 100 Mcg Tab Fenofibrate 40 Mg Tab Levothyroxine 175 Mcg Tab Loratadine (Claritin) 10 Mg Cap Montelukast 10 Mg Tab Omeprazole 20 Mg Tab Discontinued Medications: Amlodipine (Norvasc) 10 Mg Tab Clopidogrel (Plavix) 75 Mg Tab Losartan 50 Mg Tab Follow-up with primary care physician within 1 week. Problem Qualifiers (1) Acute pancreatitis: Qualified Codes: K85.90 - Acute pancreatitis without necrosis or infection, unspecified Sven Gomes DO May 16, 2017 09:43
[2017-05-16 11:06] VITALS: O2SAT 96
[2017-05-16 12:00] VITALS: BP 154/70; PULSE 54; RESP 17; TEMP 96.4; O2SAT 95
[2017-05-16] MEDS ORDERED: CREON24 PO (14:48)
[2017-05-16] MEDS ORDERED: AMLO2.5T PO (14:52)
[2017-05-16 16:00] VITALS: BP 126/64; PULSE 61; RESP 16; TEMP 96.3; O2SAT 94
== END 2017-05-16 17:40 | disposition home or self-care (01) | DRG 440 ==
LOC: NEPE 01:20 → NEDA 03:31 → NEDH 12:55 → N07B 15:29
PROVIDERS: ADMIT Hospitalist; ATTEND Hospitalist
DX: K85.90 Acute pancreatitis without necrosis or infection, unspecified (principal); J84.10 Pulmonary fibrosis, unspecified; I48.91 Unspecified atrial fibrillation; I10 Essential (primary) hypertension; E78.5 Hyperlipidemia, unspecified; E03.9 Hypothyroidism, unspecified; K21.9 Gastro-esophageal reflux disease without esophagitis; Z86.73 Personal history of transient ischemic attack (TIA), and cerebral infarction without residual deficits; K86.1 Other chronic pancreatitis; J44.9 Chronic obstructive pulmonary disease, unspecified; H91.90 Unspecified hearing loss, unspecified ear; M19.90 Unspecified osteoarthritis, unspecified site
CPT/HCPCS: 71010; 74177; 80048; 80053; 81001; 82784; 83690; 85025; 85610; 85730; 86038; 93005; 96374; C9113; J1644; J2270; J7030; Q9967